=== PATIENT | female | born 1955 | race Caucasian/White ===

== ENCOUNTER 2021-02-11 08:59 | Outpatient (REF) | payer MEDICARE, MEDICAID, SELFPAY ==
[2021-02-11 10:10] LABS: Alanine Aminotransferase 11 U/L (0-31); Albumin Level 4.3 g/dL (3.5-5.0); Alkaline Phosphatase 71 U/L (39-117); Anion Gap 13 (12-20); Aspartate Amino Transferase 18 U/L (5-31); Bilirubin Total 0.7 mg/dL (0.0-1.0); Blood Urea Nitrogen 15 mg/dL (9-16); Calcium 9.1 mg/dL (8.4-10.2); Carbon Dioxide 28 mmol/L (22-29); Chloride 105 mmol/L (96-108); Cholesterol 221 mg/dL; Estimated Glomerular Filt Rate > 60; Glucose Fasting 91 mg/dL (60-99); HDL Cholesterol 71 mg/dL; LDL Cholesterol Calculated 133 mg/dl; Potassium 4.6 mmol/L (3.3-5.1); Sodium 141 mmol/L (135-145); Total Protein 7.1 g/dL (6.5-8.0); Triglycerides 86 mg/dL
== END 2021-02-11 09:00 | disposition home or self-care (01) ==
LOC: HO.LAB 08:59
PROVIDERS: PCP Internal Medicine; Visit Provider Internal Medicine
DX: E78.5 Hyperlipidemia, unspecified (principal)
CPT/HCPCS: 36415; 80053; 80061

== ENCOUNTER 2021-02-12 14:55 | Outpatient (REF) | payer MEDICARE, MEDICAID, SELFPAY | END 2021-02-12 14:56 | disposition home or self-care (01) | LOC: HO.MAMMO 14:55 | PROVIDERS: PCP Internal Medicine; Visit Provider Internal Medicine | DX: Z13.89 Encounter for screening for other disorder (principal) ==

== ENCOUNTER 2021-02-13 10:59 | Outpatient (REF) | payer MEDICARE, MEDICAID, SELFPAY ==
--- NOTE | ~2021-02-13 | MM_ITS ---
EXAMINATION: BONE DENSITOMETRY CLINICAL INDICATION: Asymptomatic menopausal state. COMPARISON: This is the patient's baseline examination. TECHNIQUE: Using a [employer] DXA System (software version: 13.1) manufactured by [employer], dual-energy x-ray absorptiometry was performed of the lumbar spine and left hip. The images are of good technical quality. Summary results are attached. FINDINGS: AP SPINE L1-L4: BMD 0.890 g/cm2, Z-score -0.2, T-score -2.4, osteopenia. LEFT FEMUR, NECK: BMD 0.597 g/cm2, Z-score -1.3, T-score -3.2, osteoporosis. LEFT FEMUR, TOTAL: BMD 0.625 g/cm2, Z-score -1.3, T-score -3.0, osteoporosis. IDENTIFIED RISK FACTORS: Low calcium intake. Menopause. HISTORY OF FRACTURE: None listed. MEDICATIONS: None listed. MM/XR DEXA axial skeleton IMPRESSION: 1. DIAGNOSIS: Osteoporosis based on the lowest T-score value of -3.2 in the femoral neck applying World Health Organization criteria. 2. 10-YEAR FRACTURE RISK PREDICTION, FRAX: Major osteoporotic fracture (clinical spine, forearm, hip or shoulder) 9.8%. Hip fracture 3.3%. 3. Treatment Recommendations: NOF guidelines recommend consideration for treatment in postmenopausal women and men age 50 and older presenting with the following: -A hip or vertebral (clinical or morphometric) fracture. -T-score less than or equal to -2.5 at the femoral neck or spine after appropriate evaluation to exclude secondary causes. -Low bone mass at the hip or spine and a 10-year fracture probability by FRAX of greater than or equal to 3% for hip fracture or greater than or equal to 20% for major osteoporotic fracture based on the [place] adapted WHO algorithm. 4. Other Recommendations: All treatment decisions require clinical judgment and consideration of individual patient factors, including patient preferences, comorbidities, previous drug use, risk factors not captured in the FRAX model (e.g. frailty, falls, vitamin D deficiency, increased bone turnover, interval significant decline in bone density) and possible under or overestimation of fracture risk by FRAX. Additional medical evaluation for secondary cause of low bone mineral density may be appropriate. FUTURE SCAN RECOMMENDATION: People with diagnosed cases of osteoporosis or at high risk for fracture should have regular bone mineral density tests. For patients eligible for Medicare, routine testing is allowed once every 2 years. The testing frequency can be increased to one year for patients who have rapidly progressing disease, those who are receiving or discontinuing medical therapy to restore bone mass, or have additional risk factors.
== END 2021-02-13 11:00 | disposition home or self-care (01) ==
LOC: HO.MAMMO 10:59
PROVIDERS: PCP Internal Medicine; Visit Provider Internal Medicine
DX: Z13.820 Encounter for screening for osteoporosis (principal); E58 Dietary calcium deficiency; Z78.0 Asymptomatic menopausal state
CPT/HCPCS: 77080

== ENCOUNTER 2021-02-25 14:03 | Outpatient (REF) | payer MEDICARE, MEDICAID, SELFPAY ==
[2021-02-25 15:29] LABS: Anion Gap 12 (12-20); Blood Urea Nitrogen 19 mg/dL (9-16); Calcium 9.4 mg/dL (8.4-10.2); Carbon Dioxide 30 mmol/L (22-29); Chloride 102 mmol/L (96-108); Estimated Glomerular Filt Rate > 60; Glucose Random 102 mg/dL (60-115); Potassium 4.1 mmol/L (3.3-5.1); Sodium 140 mmol/L (135-145)
[2021-02-25 15:54] LABS: Vitamin B12 205 pg/mL (200-900)
[2021-02-25 16:15] LABS: T4 Thyroxine 5.9 ug/dL (4.5-12.0)
== END 2021-02-25 14:04 | disposition home or self-care (01) ==
LOC: HO.LAB 14:03
PROVIDERS: PCP Internal Medicine; Visit Provider Psychiatry & Neurology Neurology
DX: G31.84 Mild cognitive impairment of uncertain or unknown etiology (principal)
CPT/HCPCS: 36415; 80048; 82607; 82746; 84436; 84443

== ENCOUNTER 2021-03-04 13:18 | Outpatient (REF) | payer MEDICARE, MEDICAID, SELFPAY ==
--- NOTE | ~2021-03-04 | CT_ITS ---
EXAMINATION: CT HEAD WITHOUT CONTRAST CLINICAL INFORMATION: Mild cognitive impairment. COMPARISON: None TECHNIQUE: Contiguous axial imaging was performed from the skull base to vertex without intravenous administration of contrast. This CT examination was performed using dose optimization techniques as appropriate, variously including the following: *Automated exposure control *Adjustment of mA and/or kV according to patient size (this includes techniques or standardized protocols for targeted exams where dose is matched to indication/reason for exam; i.e. extremities or head) *Use of iterative reconstruction technique DLP: 681 mGy-cm FINDINGS: There is no evidence of acute intracranial hemorrhage or territorial infarction. No abnormal mass effect or midline shift is seen. Manzo to white matter differentiation is well preserved. No extra-axial fluid collections are identified. The ventricles are normal in size. There is no abnormal attenuation within the brain parenchyma. The osseous structures and soft tissues are normal. The mastoid air cells and visualized portions of the paranasal sinuses are well aerated. CT/CT head/brain wo con IMPRESSION: No acute intracranial hemorrhage or mass effect.
== END 2021-03-04 13:19 | disposition home or self-care (01) ==
LOC: HO.CT 13:18
PROVIDERS: PCP Internal Medicine; Visit Provider Psychiatry & Neurology Neurology
DX: G31.84 Mild cognitive impairment of uncertain or unknown etiology (principal)
CPT/HCPCS: 70450

== ENCOUNTER 2021-07-23 12:08 | Outpatient (REF) | payer MEDICARE, MEDICAID, SELFPAY ==
--- NOTE | ~2021-07-23 | MM_ITS ---
EXAMINATION: MM DIAGNOSTIC DIGITAL BREAST TOMOSYNTHESIS, BILATERAL CLINICAL INFORMATION: Due for yearly. Also follow-up probable benign parenchymal asymmetry central left breast initially noted at new baseline. The lifetime risk of breast cancer based on the Tyrer-Cuzick Model is 12%. COMPARISON: Mammography: 06/11/2020, 08/21/2019, 08/16/2019 (new baseline, BI-RADS 0), targeted left breast ultrasound 08/21/2019. TECHNIQUE: Digital breast tomosynthesis is performed in both the craniocaudal and mediolateral oblique views along with computer-aided detection (CAD). Synthesized 2D images are generated from the tomosynthesis. Additional magnification right CC and magnification right ML views are obtained. FINDINGS: The breasts are heterogeneously dense, which may obscure small masses (ACR BI-RADS breast composition Category c). The distribution of parenchymal tissue is similar to prior studies including the area for follow-up central left breast on CC view. There is no developing density or interval mass or architectural abnormality. The left breast parenchymal asymmetry is now considered to be benign. The skin contours are smooth. There are no abnormal calcifications on the left. The right breast has new grouped calcifications posterior upper outer quadrant. The additional magnification views show predominantly heterogeneous coarse calcifications along with some fine faint calcifications, overall at least 10 in number. These represent change from prior imaging. Stereotactic sampling is recommended. Results are discussed with the patient at time of visit, using an machine driller. MM/MM tomosynthesis diagnostic BI IMPRESSION: 1. Right: New grouped heterogeneous coarse and some fine lower attenuation calcifications posterior upper outer quadrant. 2. Left: No mammographic evidence of malignancy. The parenchymal asymmetry central left breast is stable since new baseline 2018 and now considered to be benign. ASSESSMENT: BI-RADS 4: Suspicious RECOMMENDATION: Stereotactic biopsy right breast calcifications upper outer quadrant. This patient's information was entered into a reminder system with a target due date for their next mammogram.
== END 2021-07-23 12:09 | disposition home or self-care (01) ==
LOC: HO.MAMMO 12:08
PROVIDERS: Visit Provider Internal Medicine
DX: N64.89 Other specified disorders of breast (principal)
CPT/HCPCS: 77062; 77066

== ENCOUNTER 2021-07-29 08:57 | Outpatient (REF) | payer MEDICARE, MEDICAID, SELFPAY ==
--- NOTE | ~2021-07-29 | MM_ITS ---
EXAMINATION: STEREOTACTIC TOMOSYNTHESIS-GUIDED VACUUM-ASSISTED BREAST BIOPSY, RIGHT SPECIMEN RADIOGRAPH, RIGHT POST PROCEDURE DIGITAL MAMMOGRAM, RIGHT CLINICAL INFORMATION: Grouped heterogeneous calcifications posterior upper outer right breast for stereotactic sampling. COMPARISON: Mammography 07/23/2021, 06/11/2020. TECHNIQUE/PROCEDURE: Informed consent was obtained from the patient after discussion of the benefits, risks, and alternatives to biopsy today. Patient appeared to understand. Gave opportunity for questions. Patient signed consent form. BIOPSY TABLE: [employer] Affirm Prone Biopsy System. LESION: Grouped heterogeneous calcifications posterior upper outer right breast. LOCAL ANESTHESIA: 8 mL 1% lidocaine; 10 mL 1% lidocaine with epinephrine. DERMATOTOMY: Single skin malu dermatotomy performed. NEEDLE: [employer] Eviva 9-gauge vacuum assisted core biopsy device. APPROACH: lateral medial. TARGETING: Digital breast tomosynthesis used for targeting. CORES: 7. CLIP: [employer] SecurMark T-shaped marker. SPECIMEN RADIOGRAPH: Specimen radiograph is taken in separate room using digital mammography. The index calcifications are in the excised cores. There are at least 12 calcifications in the cores. POST PROCEDURE UNILATERAL DIGITAL MAMMOGRAM: The post biopsy mammogram is performed in separate room using separate digital mammography equipment from the biopsy procedure. CC and ML views are obtained. There are scattered areas of fibroglandular density (breast composition category: b). The clip marker is deployed. There is mild accordion effect with marker residing approximately 1 cm from the remaining calcifications. The patient tolerated the procedure well. No immediate complications. Home instructions reviewed with the patient. Final pathology results are pending. MM/MM stereotactic biopsy RT IMPRESSION: 1. Digital tomosynthesis-guided core biopsy right breast with clip placement. 2. Specimen radiograph taken and post procedure mammogram. There is satisfactory positioning of the biopsy clip. 3. Final pathology results pending. An addendum report will be issued.
== END 2021-07-29 08:58 | disposition home or self-care (01) ==
LOC: HO.MAMMO 08:57
PROVIDERS: Visit Provider Surgery
DX: D05.11 Intraductal carcinoma in situ of right breast (principal)
CPT/HCPCS: 19081; 88305; 88341; 88342; 88360; 99202; A4648

== ENCOUNTER → 2021-08-01 09:16 | Outpatient (BNVA) | payer MEDICARE, MEDICAID, SELFPAY | PROVIDERS: PCP Internal Medicine; Referring Provider Internal Medicine; Visit Provider Surgery | DX: D05.11 Intraductal carcinoma in situ of right breast (principal) | CPT/HCPCS: 99212 ==

== ENCOUNTER 2021-08-04 08:14 | Outpatient (REF) | payer MEDICARE, MEDICAID, SELFPAY ==
[2021-08-04 09:44] LABS: Alanine Aminotransferase 10 U/L (0-31); Albumin Level 4.4 g/dL (3.5-5.0); Alkaline Phosphatase 90 U/L (39-117); Anion Gap 12 (12-20); Aspartate Amino Transferase 15 U/L (5-31); Bilirubin Total 0.6 mg/dL (0.0-1.0); Blood Urea Nitrogen 12 mg/dL (9-16); Calcium 9.9 mg/dL (8.4-10.2); Carbon Dioxide 28 mmol/L (22-29); Chloride 104 mmol/L (96-108); Cholesterol 221 mg/dL; Estimated Glomerular Filt Rate > 60; Glucose Fasting 86 mg/dL (60-99); HDL Cholesterol 64 mg/dL; LDL Cholesterol Calculated 137 mg/dl; Potassium 4.9 mmol/L (3.3-5.1); Sodium 139 mmol/L (135-145); Total Protein 7.3 g/dL (6.5-8.0); Triglycerides 101 mg/dL
== END 2021-08-04 08:15 | disposition home or self-care (01) ==
LOC: HO.LAB 08:14
PROVIDERS: PCP Internal Medicine; Visit Provider Internal Medicine
DX: E78.5 Hyperlipidemia, unspecified (principal)
CPT/HCPCS: 36415; 80053; 80061

== ENCOUNTER 2021-08-20 | Outpatient (REF) | payer MEDICARE, MEDICAID, SELFPAY | END 2021-08-20 00:01 | disposition home or self-care (01) | LOC: HO.MAMMO | PROVIDERS: Visit Provider Surgery | DX: Z53.8 Procedure and treatment not carried out for other reasons (principal); D05.11 Intraductal carcinoma in situ of right breast; M81.0 Age-related osteoporosis without current pathological fracture; F41.8 Other specified anxiety disorders; F33.0 Major depressive disorder, recurrent, mild; Z88.0 Allergy status to penicillin ==

== ENCOUNTER 2021-08-20 06:50 | Day surgery (SDC) | payer MEDICARE, MEDICAID, SELFPAY ==
[2021-08-14 12:18] VITALS: BMI 19.7
--- NOTE | 2021-08-19 10:27 | HO.ANESPROP2 ---
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) Osteoporosis (Acute) Mild recurrent major depression (Acute) Depression (Acute) Cognitive impairment (Acute) Dyslipidemia (Acute) Chronic headaches (Acute) Past Medical History Medical History (Updated 08/14/21 @ 12:08 by Kiera Peterson, RN) Anxiety Chronic headaches Cognitive impairment Depression Dyslipidemia Mild recurrent major depression Osteoporosis Family History Family History Father Cirrhosis Mother Chronic mental illness Diabetes Hypertension Family/Other Chronic mental illness Sister Breast cancer Sister Lung cancer Cancer of kidney Family/Other Breast cancer Surgical History Surgical History History of surgery Social History Social History Housing: Apartment Alcohol intake: never Patient Tobacco Use Status: Never used Tobacco e-Cigarette/Vaping Use: Never Used Second Hand Smoke Exposure: No Use of substances other than those prescribed or required for medical reasons: No Are you DNR?: No Advance Directives: No Advance Directives Information Provided: Yes service: No Current occupational status: disabled Meds Allergies Allergy/AdvReac Type Severity Reaction Status Date / Time penicillin V Allergy Intermediate Itching Verified 08/14/21 12:08 Home Medications Medication Instructions Recorded Confirmed Last Taken Type ibuprofen 200 mg tablet (Advil) 200 mg PO Q6H PRN 02/06/21 08/14/21 Unknown History escitalopram oxalate 10 mg tablet 10 mg PO DAILY 07/08/21 08/14/21 Unknown History trazodone 100 mg tablet 100 mg PO BEDTIME 08/14/21 08/14/21 Unknown History Exam Exam Date and Time: August 19, 2021 1027 Height,Weight and Vital Signs: Height 5 ft Weight 45.813 kg Pertinent Lab Results Pertinent Lab Results: Laboratory Tests 06/13/20 08/04/21 07:20 08:35 WBC 5.3 Hgb 12.6 Hct 39.1 Plt Count 278 Sodium 139 Potassium 4.9 Chloride 104 Carbon Dioxide 28 BUN 12 Creatinine 0.77 Assessment and Plan Assessment Anesthesia Assessment: Chart Reviewed Documented by User: Sea Bertrand MD 08/20/21 07:49 PMFSH Past Medical History Medical History (Updated 08/14/21 @ 12:08 by Kiera Peterson RN) Anxiety Chronic headaches Cognitive impairment Depression Dyslipidemia Mild recurrent major depression Osteoporosis Family History Family History Father Cirrhosis Mother Chronic mental illness Diabetes Hypertension Family/Other Chronic mental illness Sister Breast cancer Sister Lung cancer Cancer of kidney Family/Other Breast cancer Surgical History Surgical History History of surgery Social History Social History Housing: Apartment Alcohol intake: never Patient Tobacco Use Status: Never used Tobacco e-Cigarette/Vaping Use: Never Used Second Hand Smoke Exposure: No Use of substances other than those prescribed or required for medical reasons: No Are you DNR?: No Advance Directives: No Advance Directives Information Provided: Yes service: No Current occupational status: disabled Meds Allergies Allergy/AdvReac Type Severity Reaction Status Date / Time penicillin V Allergy Intermediate Itching Verified 08/14/21 12:08 Home Medications Medication Instructions Recorded Confirmed Last Taken Type ibuprofen 200 mg tablet (Advil) 200 mg PO Q6H PRN 02/06/21 08/14/21 Unknown History escitalopram oxalate 10 mg tablet 10 mg PO DAILY 07/08/21 08/14/21 Unknown History trazodone 100 mg tablet 100 mg PO BEDTIME 08/14/21 08/14/21 Unknown History Exam Airway Mallampati Class: II TM Dist: >3cm Neck ROM: Full
--- NOTE | ~2021-08-20 | MM_ITS ---
EXAMINATION: MM MAMMOGRAM GUIDED NEEDLE LOCALIZATION BREAST, RIGHT MM NEEDLE LOCALIZATION SPECIMEN FROM THE RIGHT BREAST CLINICAL INFORMATION: Recent diagnosis DCIS upper outer right breast. COMPARISON: Mammography 07/29/2021, 07/23/2021, 06/11/2020, 08/16/2019 TECHNIQUE NEEDLE LOC: Proper informed consent is obtained from the patient after discussion of the procedure, potential risks and complications, and alternatives including declining the procedure today. Patient was given an opportunity for questions. The patient appeared to understand. The patient consented to the procedure and signed the consent form. Hospital provided field sales agent assisted for the consent and throughout the procedure. GUIDANCE: Digital mammography. APPROACH: Lateral Medial. TARGET: Biopsy clip marker upper outer right breast. ANESTHESIA: lidocaine 1%: 5 mL. LOCALIZATION MARKER: [employer]. 5 cm length. The skin is prepped and local anesthesia administered. The needle is positioned and position assessed with mammography. The wire is hooked into position. [place] needle protector placed. The patient tolerated the procedure well and had no immediate complication. Procedure results called to emergency medical service manager (Estefania) for Dr. Rojas. TECHNIQUE SPECIMEN RADIOGRAPH: Imaging of the excised specimen is performed using digital mammography in 1 view. FINDINGS SPECIMEN RADIOGRAPH: The specimen shows the needle and hookwire are delivered intact. The biopsy clip marker is seen adjacent to the distal needle. There are also grouped calcifications adjacent to the wire. Results were called to Dr. Tate Rojas in the operating room at the time of imaging. MM/MM needle loc RT IMPRESSION: 1. Status post right breast needle localization with wire hooked into position. 2. Post operative specimen radiograph obtained.
[2021-08-20 07:40] VITALS: BMI 19.5
[2021-08-20 07:45] VITALS: BP 144/77; PULSE 87; RESP 20; TEMP 36.5; O2SAT 100
[2021-08-20] MEDS: Lactated Ringers 1,000 ML 100 ML IVCONT (08:01)
--- NOTE | 2021-08-20 09:09 | MHC.SHP ---
Pre-Procedural Eval Section A Date of Service: 08/20/21 The patient is an INPATIENT: No Changes since office visit: Yes Patient answered all questions; No Cold of Flu in the past 2 weeks, No New Medical Problems and No Changes in Medication The History & Physical has been completed within 30 days and I have reviewed it.: Yes Section B Chief Complaint: Ductal carcinoma in situ of right breast Allergies: Allergies Allergy/AdvReac Type Severity Reaction Status Date / Time penicillin V Allergy Intermediate Itching Verified 08/14/21 12:08 Plan Diagnosis/Plan: Unchanged I have reviewed the history and physical and performed a pertinent physical examination on my patient. No changes have occurred unless specified.
[2021-08-20] MEDS: vancomycin HCL 1,000 MG in 0.9 % Sodium Chloride 250 ML 270 MG IV (09:20)
[2021-08-20 10:43] VITALS: BP 116/66; PULSE 75; RESP 17; TEMP 36.4; O2SAT 97
[2021-08-20 10:48] VITALS: BP 123/69; PULSE 81; RESP 16; O2SAT 98
[2021-08-20 10:54] VITALS: BP 121/67; PULSE 82; RESP 16; O2SAT 99
[2021-08-20 11:00] VITALS: BP 130/66; PULSE 83; RESP 16; O2SAT 96
[2021-08-20 11:15] VITALS: PULSE 3; RESP 16; TEMP 36.4; O2SAT 97
--- NOTE | 2021-08-20 11:17 | P.OP_ITS ---
Operative Note Operative Note Date of Service: 08/20/21 Narrative: Preoperative diagnosis: Ductal carcinoma in situ right breast Postoperative diagnosis: Same Procedure: Right breast lumpectomy with needle localization Surgeon: Tate Rojas MD Tool Grinder Operator Surface: Julia Gilmore PA-C Anesthesia: General LMA Indications for procedure: 65-year-old female patient presenting with a cluster of microcalcifications in the right breast at the upper outer quadrant. Subsequent stereotactic guided core biopsy revealed ductal carcinoma in situ. She presents today for lumpectomy with needle localization. Operative findings: Specimen x-ray confirmed marking clip and some of residual calcifications within the specimen. Gross inspection revealed biopsy cavity within the specimen. Specimen: Right breast lumpectomy Estimated blood loss: 5 mL Procedure details: Patient was brought to the OR and placed in a supine position. After administering general anesthesia, the right breast was prepped with ChloraPrep draped in a sterile fashion. A surgical time-out was called and the consent confirmed. Preoperative antibiotics were administered and the dye boots were in place. Local anesthesia consisting of 0.25% Sensorcaine with epinephrine was then infiltrated around the localizing needle. A radial incision was made around the entrance of the needle and carried out through subcutaneous tissue. Superior and inferior skin flaps were then created. A core of tissue surrounding the needle was then dissected using a combination of sharp and electrocautery dissection. Every attempt was made to dissect wide of the localizing wire to assure complete removal of the specimen. The specimen was then marked with a long suture on the lateral margin, short suture on the superior margin and a loop suture in the deep margin. Specimen was sent to Radiology department for specimen x-ray followed by gross pathology. After assuring complete removal of the specimen, the wounds were checked for hemostasis. Wounds were irrigated with saline and suctioned dry. Deep breast tissue was then reapproximated using interrupted 3-0 Polysorb sutures. Dermis was reapproximated using interrupted 3-0 Polysorb sutures. Skin was then closed using a running subcuticular 4-0 Polysorb suture. Steri-Strips 2 x 2 gauze and Tegaderm were then applied. The patient tolerated the procedure well. Sponge, instrument, and needle counts reported as correct. The patient was transferred to PACU in stable condition.
== END 2021-08-20 12:00 | disposition home or self-care (01) ==
PROVIDERS: PCP Internal Medicine; Visit Provider Surgery
PROC: (CPT 19301; principal; 2021-08-20 09:30)
DX: D05.11 Intraductal carcinoma in situ of right breast (principal); Z17.0 Estrogen receptor positive status [ER+]; R92.0 Mammographic microcalcification found on diagnostic imaging of breast; Z80.3 Family history of malignant neoplasm of breast; F33.0 Major depressive disorder, recurrent, mild; F41.9 Anxiety disorder, unspecified; M81.0 Age-related osteoporosis without current pathological fracture; G31.84 Mild cognitive impairment of uncertain or unknown etiology; R51.9 Headache, unspecified; Z79.899 Other long term (current) drug therapy; Z79.1 Long term (current) use of non-steroidal anti-inflammatories (NSAID); Z88.0 Allergy status to penicillin
CPT/HCPCS: 19301; 19281; 88307; 88329; A4648; J1100; J2370; J2405; J3010; J3370

== ENCOUNTER → 2021-08-26 09:57 | Outpatient (BNVA) | payer MEDICARE, MEDICAID, SELFPAY | PROVIDERS: PCP Internal Medicine; Referring Provider Internal Medicine; Visit Provider Surgery | DX: Z48.3 Aftercare following surgery for neoplasm (principal); D05.11 Intraductal carcinoma in situ of right breast | CPT/HCPCS: 99212 ==

== ENCOUNTER → 2022-06-16 08:45 | Outpatient (REF) | payer MEDICARE, MEDICAID, OTHER, SELFPAY ==
--- NOTE | 2022-06-16 08:52 | ECG_ITS ---
Test Reason : arrhythmia Blood Pressure : / mmHG Vent. Rate : 068 BPM Atrial Rate : 068 BPM P-R Int : 140 ms QRS Dur : 074 ms QT Int : 368 ms P-R-T Axes : 046 011 026 degrees QTc Int : 391 ms Normal sinus rhythm Normal ECG No previous ECGs available Referred By: Viktoria Lombardi Electronically Signed By:MADHU JEROME MD
== END ==
LOC: HO.CARD 08:45
PROVIDERS: PCP Internal Medicine; Visit Provider Internal Medicine
DX: I49.9 Cardiac arrhythmia, unspecified (principal)
CPT/HCPCS: 93005

== ENCOUNTER → 2022-06-17 12:36 | Outpatient (BNV) | payer MEDICARE, MEDICAID, SELFPAY | PROVIDERS: PCP Internal Medicine; Referring Provider Surgery; Visit Provider Internal Medicine | DX: D05.11 Intraductal carcinoma in situ of right breast (principal); Z79.810 Long term (current) use of selective estrogen receptor modulators (SERMs); M81.0 Age-related osteoporosis without current pathological fracture | CPT/HCPCS: 99205; 99213; 99214; G2211 ==

== ENCOUNTER 2022-06-19 08:13 | Outpatient (REF) | payer MEDICARE, MEDICAID, SELFPAY ==
[2022-06-19 08:32] LABS: MANUAL DIFF FLAG NO
[2022-06-19 09:14] LABS: Basophils Percent Auto 0.6 % (0-2); Eosinophils Absolute Auto 0.1 X10*3/uL (0.0-0.4); Eosinophils Percent Auto 1.8 % (0-4); Hematocrit 39.1 % (37.0-47.0); Hemoglobin 12.8 g/dl (12.0-16.0); Imm Gran Abs Auto 0.01 X10*3/uL (0.00-0.03); Imm Gran Pct Auto 0.2 % (0.0-0.4); Lymphocytes Absolute Auto 1.5 X10*3/uL (1.2-4.9); Mean Corpuscular HGB Conc 32.7 g/dl (31.0-35.0); Mean Corpuscular Hemoglobin 29.3 pg (27.0-33.0); Mean Corpuscular Volume 89.5 fL (80.0-98.0); Mean Platelet Volume 9.8 fL (9.4-12.3); Monocytes Absolute Auto 0.6 X10*3/uL (0.1-1.2); Monocytes Percent Auto 12.7 % (2-11); Neutrophils Absolute Auto 2.6 x10*3/uL (2.0-8.3); Neutrophils Percent Auto 53.7 % (45-73); Platelet Count 283 X10*3/uL (160-400); Red Blood Count 4.37 X10*6/uL (4.20-5.50); Red Cell Distribution Width 12.2 % (11.0-16.0); White Blood Count 4.9 X10*3/uL (4.8-10.8)
[2022-06-19 10:10] LABS: Alanine Aminotransferase 13 U/L (0-31); Albumin Level 4.4 g/dL (3.5-5.0); Alkaline Phosphatase 82 U/L (39-117); Anion Gap 13 (12-20); Aspartate Amino Transferase 18 U/L (5-31); Bilirubin Total 0.6 mg/dL (0.0-1.0); Blood Urea Nitrogen 18 mg/dL (9-16); Calcium 9.5 mg/dL (8.4-10.2); Carbon Dioxide 29 mmol/L (22-29); Chloride 104 mmol/L (96-108); Cholesterol 241 mg/dL; Estimated Glomerular Filt Rate > 60; Glucose Fasting 84 mg/dL (60-99); HDL Cholesterol 70 mg/dL; LDL Cholesterol Calculated 158 mg/dl; Potassium 4.5 mmol/L (3.3-5.1); Sodium 141 mmol/L (135-145); Total Protein 7.4 g/dL (6.5-8.0); Triglycerides 67 mg/dL
[2022-06-19 10:20] LABS: Thyroid Stimulating Hormone 2.25 uIU/mL (0.32-4.0); Vitamin D 25-OH Total 37.4 ng/mL (>30)
[2022-06-19 10:36] LABS: Folate 18.1 ng/mL (> or = 4.0); Vitamin B12 247 pg/mL (200-900)
[2022-06-19 10:47] LABS: Syphilis Screen Nonreactive (Nonreactive)
== END 2022-06-19 08:14 | disposition home or self-care (01) ==
LOC: HO.LAB 08:13
PROVIDERS: PCP Internal Medicine; Visit Provider Internal Medicine
DX: E78.5 Hyperlipidemia, unspecified (principal); M81.0 Age-related osteoporosis without current pathological fracture; R41.89 Other symptoms and signs involving cognitive functions and awareness
CPT/HCPCS: 36415; 80053; 80061; 82306; 82607; 82746; 84443; 85025; 86780

== ENCOUNTER 2022-06-25 14:19 | Outpatient (REF) | payer MEDICARE, MEDICAID, SELFPAY ==
--- NOTE | ~2022-06-25 | MM_ITS ---
EXAMINATION: MM DIAGNOSTIC DIGITAL BREAST TOMOSYNTHESIS, BILATERAL CLINICAL INFORMATION: Right lumpectomy for DCIS, 08/20/2021. Due for yearly. COMPARISON: Mammography: 08/20/2021, 07/29/2021, 07/23/2021, 09/11/2020, 08/21/2019, 08/16/2019 (new baseline). TECHNIQUE: Digital breast tomosynthesis is performed in both the craniocaudal and mediolateral oblique views along with computer-aided detection (CAD). Synthesized 2D images are generated from the tomosynthesis. Additional exaggerated right CC, magnification exaggerated right CC and magnification right ML views are obtained. FINDINGS: There are scattered areas of fibroglandular density (ACR BI-RADS breast composition Category b). There are post therapy changes right breast when compared with prior exam. Mild reduced breast size and mild scarring posterior upper outer right breast is present. The breasts are otherwise similar to prior studies. There is no interval mass or developing density or abnormal calcifications. The axilla are unremarkable. Results are provided to the patient at time of visit by the technologist. MM/MM tomosynthesis diagnostic BI IMPRESSION: -No mammographic evidence of malignancy. -Post therapy changes right breast. ASSESSMENT: BI-RADS 2: Benign RECOMMENDATION: Annual bilateral mammography. This patient's information was entered into a reminder system with a target due date for their next mammogram.
== END 2022-06-25 14:20 | disposition home or self-care (01) ==
LOC: HO.MAMMO 14:19
PROVIDERS: PCP Internal Medicine; Visit Provider Internal Medicine
DX: D05.11 Intraductal carcinoma in situ of right breast (principal)
CPT/HCPCS: 77062; 77066

== ENCOUNTER → 2023-07-16 13:00 | Outpatient (BNV) | payer MEDICARE, MEDICAID, SELFPAY | PROVIDERS: PCP Internal Medicine; Visit Provider Radiology Diagnostic Radiology | DX: D05.11 Intraductal carcinoma in situ of right breast (principal) | CPT/HCPCS: 77062; 77066; G0279 ==

== ENCOUNTER 2023-07-16 13:09 | Outpatient (REF) | payer MEDICARE, MEDICAID, SELFPAY ==
--- NOTE | ~2023-07-16 | MM_ITS ---
EXAMINATION: MM DIAGNOSTIC DIGITAL BREAST TOMOSYNTHESIS, BILATERAL CLINICAL INFORMATION: Year 2 status post lumpectomy for right breast DCIS upper outer quadrant. Bilateral screening. COMPARISON: Mammography: 06/25/2022, 07/23/2021, 06/03/2020, and dating back to 2019. TECHNIQUE: Digital breast tomosynthesis is performed in both the craniocaudal and mediolateral oblique views along with computer-aided detection (CAD). Synthesized 2D images are generated from the tomosynthesis. In addition to standard views, spot magnification right CC and ML views were obtained. Also, full-field left 3-D exaggerated CC projection was performed. FINDINGS: There are scattered areas of fibroglandular density (ACR BI-RADS breast composition Category b). There are stable postoperative changes in the upper outer right breast related to prior intervention/lumpectomy. There are no recurrent calcifications identified. There are no developing masses, regions of developing architectural distortion, or suspicious grouped calcifications in either breast. A rounded masslike asymmetry in the medial left breast on the cc view and has no MLO correlate, and has been previously characterized as a prominent island of glandular tissue. It has not changed in size and appearance. It dissipates somewhat on the exaggerated CC projection. MM/MM tomosynthesis diagnostic BI IMPRESSION: There are no significant changes from prior study. No findings suspicious for malignancy. Stable benign post operative changes right breast upper outer quadrant. No recurrent calcifications identified. Recommend patient continue routine annual screening for both breasts. ASSESSMENT: BI-RADS BI-RADS 2 - Benign Findings RECOMMENDATION: 1 year F/U Results were provided to the patient at time of visit by the technologist. This patient's information was entered into a reminder system with a target due date for their next mammogram.
== END 2023-07-16 13:10 | disposition home or self-care (01) ==
LOC: HO.MAMMO 13:09
PROVIDERS: PCP Internal Medicine; Visit Provider Internal Medicine
DX: Z85.3 Personal history of malignant neoplasm of breast (principal)
CPT/HCPCS: 77062; 77066

== ENCOUNTER 2024-02-16 13:37 | Outpatient (AMB) | payer MEDICARE, MEDICAID, SELFPAY ==
[2024-02-16 13:53] VITALS: BP 128/82; BMI 19.5
--- NOTE | 2024-02-16 13:53 | A.OFFVIS_ITS ---
Intake Vital Signs 02/16/24 13:53 Height 5 ft 3 in Weight 110 lb BMI 19.5 BP 128/82 Blood Pressure Location Lt brachial Position Sitting Intake Visit Reasons: SWV G0439 Intake Note: Patient here for a subsequent annual wellness visit Rehab Liaison Required: No Accompanied by: sister Allergies penicillin V Allergy (Intermediate, Verified 02/16/24 14:14) Itching Medication List - Last Reconciled 02/16/24 by Viktoria Lombardi MD alendronate 70 mg PO QWEEK 30 days cyanocobalamin (vitamin B-12) (Vitamin B-12) 1,000 mcg PO DAILY escitalopram oxalate 10 mg PO DAILY ibuprofen (Advil) 200 mg PO Q6H PRN tamoxifen 20 mg (2 x 10 mg) PO DAILY trazodone 100 mg PO BEDTIME HPI HPI Comments History of Present Illness Details This is a 68-year-old female with mild major depression that comes accompanied by sister for her physical exam. Depression stable with escitalopram. Last mammogram was July 2023 and was normal. Had Cologuard 2021 was negative. Bone densitometry was done 2020 showing osteoporosis and this will be repeated. Ppp handed to patient. Completed healthcare proxy. [facility] Medical History Anxiety Osteoporosis Mild recurrent major depression Depression Cognitive impairment Dyslipidemia Chronic headaches Surgical History S/P lumpectomy, right breast History of surgery Family History Father Cirrhosis Mother Diabetes Hypertension Family/Other Chronic mental illness Sister Breast cancer Sister Lung cancer Cancer of kidney Family/Other Breast cancer Substance use disorder Social History Household Members: Family Housing: Apartment Alcohol intake: never Patient Tobacco Use Status: Never used Tobacco e-Cigarette/Vaping Use: Never Used Second Hand Smoke Exposure: No service: No Current occupational status: disabled Cognitive needs: No Hearing needs: No Vision needs: No Female Reproductive History Menstrual Age of Menarche: 11 Questionnaire Medicare Wellness Checkup What [age] What gender do you identify with?: female During the past 4 weeks, how much have you been bothered by emotional problems such as feeling anxious, depressed, irritable, sad or downhearted, and blue?: quite a bit During the past 4 weeks, has your physical & emotional health limited your social activities with family, friends, neighbors, or groups?: not at all During the past 4 weeks, how much bodily pain have you generally had?: mild pain During the past 4 weeks, was someone available to help you if you needed & wanted help?: yes, as much as I wanted During the past 4 weeks, what was the hardest physical activity you could do for at least 2 minutes?: heavy Can you get to places out of walking distance without help? (For eg., can you travel alone on buses, taxis or drive your car?): Yes Can you go shopping for groceries or clothes without someone's help?: No Can you prepare your own meals?: No Can you do your housework without help?: Yes Because of any health problems, do you need the help of another person with your personal care needs such as eating, bathing, dressing or getting around the house?: No Can you handle your own money without help?: No During the past 4 weeks, how would you rate your health in general?: good During the past 4 weeks how have things been going for you?: good & bad parts about equal Are you having difficulties driving your car?: not applicable, I don't use a car Do you always fasten your seat belt when you are in a car?: yes, usually During past 4 weeks, have you been bothered by the following: never: Falling or dizzy when standing up, Sexual problems?, Trouble eating well? and Problems using the telephone? and sometimes: Teeth or denture problems? and Tiredness or fatigue? Have you fallen 2 or more times in the past year?: No Are you afraid of falling?: No Are you a smoker?: no During the past 4 weeks, how many drinks of wine, beer, or other alcoholic beverages did you have?: no alcohol at all Do you exercise for about 20 minutes 3 or more times a week?: yes, some of the time Have you been given information to help with the following?: yes: Hazards in your house that might hurt you? and yes: Keeping track of your medications? How often do you have trouble taking medicines the way you have been told to take them?: I always take medicine as prescribed How confident are you that you can control & manage most of your health problems?: somewhat confident What is your race?: or origin or descent Mini Mental State Exam (MMSE) Orientation What is the (year) (season) (date) (day) (month)?: date, day and month Where are we (state) (county) (town or city) (hospital) (floor)?: state, county, town or city, hospital/clinic and floor Registration Name of 3 unrelated objects clearly and slowly, then ask patient to repeat all 3 of them. (1st repeat determines score. Make sure they can repeat all three): object 1, object 2 and object 3 Attention & Calculation (CHOOSE ONE) Spell WORLD backwards (DLROW): 3 letters Recall Ask patient to repeat the 3 items from question #3.: object 1, object 2 and object 3 Language Show patient a wristwatch & ask what it is. Repeat for pencil.: watch and pencil Ask the patient to repeat the phrase 'No ifs, ands, or buts' after you.: correct Ask the patient to 'take a piece of paper with their right hand' 'fold paper in half' 'place paper on floor': take paper in right hand, fold paper in half and place paper on floor Print the sentence 'CLOSE YOUR EYES' on a piece. If patient actually closes eyes then score.: followed written direction Score Score: 24 Activity of Daily Living Bathing - sponge bath, tub bath or shower: receives no assistance (gets in/out by self, if usual bathing means Dressing - getting clothes from closets & drawers, including inner/outer garments & fasteners.: gets clothes & gets completely dressed without help Toileting - going to the 'toilet room' for urine/bowel elimination & cleaning self/arranging clothes: goes to toilet room, cleans self, arranges clothes without help Transfer: moves in & out of bed and chair without help (may use support object) Continence: controls urination/bowel movements completely by self Total Score: 0 Information obtained from: patient Using telephone: dependent Traveling: dependent Shopping: dependent Preparing meals: dependent Housework: dependent Taking medicine: needs assistance Managing money: dependent PHQ-9 Over the last 2 weeks, how often have you been bothered by any of the following problems? 1. Little interest or pleasure in doing things: more than half the days 2. Feeling down, depressed, or hopeless: more than half the days 3. Trouble falling or staying asleep, or sleeping too much: several days 4. Feeling tired or having little energy: several days 5. Poor appetite or overeating: several days 6. Feeling bad about yourself - or that you are a failure or have let yourself or your family down: several days 7. Trouble concentrating on things, such as reading the newspaper or watching television: several days 8. Moving or speaking so slowly that other people could have noticed. Or the opposite - being so fidgety or restless that you have been moving around a lot more than usual: not at all 9. Thoughts that you would be better off or of hurting yourself in some way: not at all Total score: 9 Depression Screening Interpretation: Positive Depression Screening Follow-up: Existing condition Depression Screening Done: Yes 64544 - PHQ-9 Billing: Yes Source: Developed by Drs. Norm Alba, Prerna Bojorquez, Constantin Marley and colleagues, with an educational ivette from [employer]. AUDIT C Alcohol Use Questionnaire (AUDIT-C) 1. How often do you have a drink containing alcohol?: Never Total Score: 0 Score Reviewed/Action Taken: No Thrive Questionnaire Date Thrive assessed: 02/16/24 I am a: Parent/Caregiver What is your living situation today?: I have a steady place to live Within the past 12 months, did the food you bought not last and you didn't have the money to get more?: Never true Within the past 12 months, did you worry whether your food would run out before you got money to buy more?: Never true Do you have trouble paying for medicines?: No Do you have trouble getting transportation to medical appointments?: No Do you have trouble paying your heating and electricity bill?: No Do you have trouble taking care of your child, family member or friend?: No Do you have trouble with day-to-day activities such as bathing, preparing meals, shopping, managing finances, etc.?: No Are you currently unemployed and looking for a job?: No Are you interested in more education?: No Please select the resources that you would like help with: None Currently or been in a relationship where the following occur: no concerns reported THRIVE Score: 0 ANDREW-7 AMB Questionnaire ANDREW-7 Date ANDREW - 7 assessed: 02/16/24 Feeling nervous, anxious, or on edge: 1 = Several days Not being able to stop or control worryin = Not at all Worrying too much about different things: 2 = More than half the days Trouble relaxin = Several days Being so restless that it is hard to sit still: 0 = Not at all Becoming easily annoyed or irritable: 1 = Several days Feeling afraid as if something awful might happen: 0 = Not at all Total ANDREW-7 score (0-4 normal; 5-9 mild; 10-14 moderate; 15-21 severe): 5 Source: Developed by Drs. Norm Alba, Prerna Bojorquez, Constantin Marley and colleagues, with an educational ivette from [employer]. ANDREW-7 Assessment Billing ANDREW-7 Assessment Tool: ANDREW-7 Assessment 66902 Fall Risk Assessment Fall Risk Assessment Fall risk assessment: No Falls in past year Review of Systems ENT Reports Normal hearing present Neuro Reports Normal hearing present and Reports memory loss Psych Reports memory loss Physical Exam Vital Signs: Last Vital Signs BP 128/82 02/16/24 13:53 BMI result Body Mass Index 19.5 Resp Auscultation: clear to auscultation bilaterally Cardio Heart sounds: S1 normal heart sound present and S2 normal heart sound present Neuro Cranial nerves: Yes Normal hearing present Gait exam (Neuro): Normal gait present Romberg Test: Negative Assessment & Plan Assessment & Plan (1) Encounter for Medicare annual wellness exam: Code(s): Z00.00 - Encounter for general adult medical examination without abnormal findings Plan: Repeat in a year. (2) Mild recurrent major depression: Code(s): F33.0 - Major depressive disorder, recurrent, mild Plan: Continue escitalopram. Orders: Orders Vitamin D 25-OH Total Today E55.9 - Vitamin D deficiency, unspecified Vitamin B12 and Folate Today E53.8 - Deficiency of other specified B group vitamins Lipid Panel Today E78.5 - Hyperlipidemia, unspecified XR DEXA axial skeleton Today N95.9 - Unspecified menopausal and perimenopausal disorder Comprehensive [place]. Panel Fast Today E78.5 - Hyperlipidemia, unspecified Quality Reporting (2019) Fall Risk Screening (CMS 139) Fall risk assessment: No Falls in past year Depression/Bipolar (159/160/161/177) PHQ-9: Total score: 9 Coding Level of Care Code Medicare Subsequent (G0439) Diagnoses Encounter for Medicare annual wellness exam Z00.00 Mild recurrent major depression F33.0 CPT Codes Advance Care Planning - Time spent: 1-15 minutes, on File ([id number]) Additional Codes ANDREW-7 Assessment Billing - ANDREW-7 Assessment Tool: ANDREW-7 Assessment [id number] ([id number]) Time Spent (min) 35 Advance Care Planning Advance Care Planning discussion: Exists, not on file Date of discussion: 02/16/24 Who was present: sister, patient and me Forms completed: Health Care Proxy Time spent: 1-15 minutes, on File Actual minutes spent: 3
== END 2024-02-16 14:36 | disposition home or self-care (01) ==
PROVIDERS: PCP Internal Medicine; Visit Provider Internal Medicine
DX: Z00.00 Encounter for general adult medical examination without abnormal findings (principal); F33.0 Major depressive disorder, recurrent, mild
CPT/HCPCS: 1123F; G0439

== ENCOUNTER 2024-03-01 12:38 | Outpatient (REF) | payer MEDICARE, MEDICAID, SELFPAY ==
--- NOTE | ~2024-03-01 | MM_ITS ---
EXAMINATION: BONE DENSITOMETRY CLINICAL INDICATION: Menopause. COMPARISON: Baseline BD dated 02/13/2021. TECHNIQUE: Using a [employer] DXA System (software version: 13.1) manufactured by [employer], dual-energy x-ray absorptiometry was performed of the lumbar spine and left hip. The images are of good technical quality. Summary results are attached. FINDINGS: LEFT FEMUR, NECK: Current: BMD 0.558 g/cm2, Z-score -1.5, T-score -3.5, osteoporosis. Baseline: BMD 0.597 g/cm2. LEFT FEMUR, TOTAL: Current: BMD 0.562 g/cm2, Z-score -1.8, T-score -3.5, osteoporosis, 10.1% decrease from baseline (<5% change is not significant). Baseline: BMD 0.625 g/cm2. AP SPINE L1-L4: Current: BMD 0.882 g/cm2, Z-score -0.3, T-score -2.5, osteoporosis, 0.9% decrease from baseline (<5% change is not significant). Baseline: BMD 0.890 g/cm2. IDENTIFIED RISK FACTORS: Menopause, hysterectomy, left oophorectomy, osteoporosis. HISTORY OF FRACTURE: None listed. MEDICATIONS: Multivitamin, ERT/SERMS. MM/XR DEXA axial skeleton IMPRESSION: 1. DIAGNOSIS: Osteoporosis based on the lowest T-score value of -3.5 in the femur neck and total femur applying World Health Organization criteria. 2. 10-YEAR FRACTURE RISK PREDICTION, FRAX: According to the guidelines, FRAX calculation should only be performed on patients in the osteopenia bone density category. Therefore, FRAX was not performed on this patient. 3. Treatment Recommendations: NOF guidelines recommend consideration for treatment in postmenopausal women and men age 50 and older presenting with the following: -A hip or vertebral (clinical or morphometric) fracture. -T-score less than or equal to -2.5 at the femoral neck or spine after appropriate evaluation to exclude secondary causes. -Low bone mass at the hip or spine and a 10-year fracture probability by FRAX of greater than or equal to 3% for hip fracture or greater than or equal to 20% for major osteoporotic fracture based on the [place] adapted WHO algorithm. 4. Other Recommendations: All treatment decisions require clinical judgment and consideration of individual patient factors, including patient preferences, comorbidities, previous drug use, risk factors not captured in the FRAX model (e.g. frailty, falls, vitamin D deficiency, increased bone turnover, interval significant decline in bone density) and possible under or overestimation of fracture risk by FRAX. Additional medical evaluation for secondary cause of low bone mineral density may be appropriate. FUTURE SCAN RECOMMENDATION: People with diagnosed cases of osteoporosis or at high risk for fracture should have regular bone mineral density tests. For patients eligible for Medicare, routine testing is allowed once every 2 years. The testing frequency can be increased to one year for patients who have rapidly progressing disease, those who are receiving or discontinuing medical therapy to restore bone mass, or have additional risk factors.
== END 2024-03-01 12:39 | disposition home or self-care (01) ==
LOC: HO.MAMMO 12:38
PROVIDERS: PCP Internal Medicine; Visit Provider Internal Medicine
DX: Z13.820 Encounter for screening for osteoporosis (principal); Z78.0 Asymptomatic menopausal state
CPT/HCPCS: 77080

== ENCOUNTER 2024-10-02 14:27 | Outpatient (REF) | payer MEDICARE, MEDICAID, SELFPAY ==
--- NOTE | ~2024-10-02 | MM_ITS ---
EXAMINATION: MM DIAGNOSTIC DIGITAL BREAST TOMOSYNTHESIS, BILATERAL CLINICAL INFORMATION: Year 3 postoperative follow-up protocol bilateral mammogram. History of right breast DCIS upper outer quadrant. Due for yearly. COMPARISON: Mammography: 07/16/2023, 06/25/2022, 07/23/2021, 06/03/2020, and dating back to 2019. TECHNIQUE: Digital breast tomosynthesis is performed in both the craniocaudal and mediolateral oblique views along with computer-aided detection (CAD). Synthesized 2D images are generated from the tomosynthesis. In addition to standard views, 2-D spot magnification right CC and ML views were obtained of the lumpectomy site1. FINDINGS: There are scattered areas of fibroglandular density (ACR BI-RADS breast composition Category b). There are stable postoperative changes in the upper outer right breast related to prior intervention/lumpectomy. There are no recurrent calcifications identified. There are no developing masses, regions of developing architectural distortion, or suspicious grouped calcifications in either breast. A rounded masslike asymmetry in the medial left breast on the CC view and has no MLO correlate, and has been previously characterized as a prominent island of glandular tissue. It has not changed in size and appearance. MM/MM tomosynthesis diagnostic BI IMPRESSION: There are no significant changes from the prior exam. No findings suspicious for malignancy. Stable benign postoperative changes right breast upper outer quadrant. No recurrent calcifications identified. -Recommend the patient resume routine annual screening to include both breasts. ASSESSMENT: BI-RADS BI-RADS 2 - Benign Findings RECOMMENDATION: 1 year F/U Results were provided to the patient at time of visit by the technologist. This patient's information was entered into a reminder system with a target due date for their next mammogram. Electronically signed by: Fermin Moulton MD 10/03/2024 09:09 AM MONI[place]
== END 2024-10-02 14:28 | disposition home or self-care (01) ==
LOC: HO.MAMMO 14:27
PROVIDERS: PCP Internal Medicine; Visit Provider Internal Medicine
DX: D05.11 Intraductal carcinoma in situ of right breast (principal)
CPT/HCPCS: 77062; 77066

== ENCOUNTER → 2024-10-02 14:30 | Outpatient (BNV) | payer MEDICARE, MEDICAID, SELFPAY | PROVIDERS: PCP Internal Medicine; Visit Provider Radiology Diagnostic Radiology | DX: D05.11 Intraductal carcinoma in situ of right breast (principal) | CPT/HCPCS: 77066; G0279 ==

== ENCOUNTER 2025-02-07 14:40 | Outpatient (AMB) | payer MEDICARE, MEDICAID, SELFPAY ==
--- NOTE | 2025-02-07 15:29 | A.OFFPC_ITS ---
Vital Signs 02/07/25 15:31 Height 5 ft 3 in Weight 105 lb BMI 18.6 BP 112/76 Blood Pressure Location Lt brachial Position Sitting Intake Visit Reasons: follow up Depression Intake Note: Patient here for a follow up Depression Train Control Technician Required: Yes Train Control Technician Language: Flower Machine Operator Name: Viktoria Lombardi MD Information Interpreted: non-clinical & clinical Accompanied by: Self / Same As Patient Allergies penicillin V Allergy (Intermediate, Verified 02/07/25 15:57) Itching Medication List - Last Reconciled 02/07/25 by Viktoria Lombardi MD alendronate 70 mg PO QWEEK 30 days cyanocobalamin (vitamin B-12) (Vitamin B-12) 1,000 mcg PO DAILY escitalopram oxalate 10 mg PO DAILY ibuprofen (Advil) 200 mg PO Q6H PRN tamoxifen 20 mg (2 x 10 mg) PO DAILY trazodone 100 mg PO BEDTIME Tobacco use date assessed: 02/07/25 Fall risk assessment: No Falls in past year Last assessed Fall Risk: 02/07/25 Dental Screening Dental Screen Date: 02/07/25 Did you have a dental visit in the last 12 months?: No Did you have a dental problem in the last 6 months where you did not have access to dental care?: No Was dental information given to patient?: Patient declined HPI HPI Comments History of Present Illness Details The patient is a 69-year-old female presenting for a wellness check-up and management of chronic conditions. Her past medical history includes right breast cancer treated with a lumpectomy in July 2021, for which she has been adhering to a course of tamoxifen aimed to conclude in 2025. She is concurrently treated for osteoporosis with weekly alendronate and is scheduled for endocrine consultation for further evaluation. She has longstanding major depressive disorder and anxiety disorder, with her latest PHQ-9 score of 1 reflecting effective management with escitalopram. Despite this progress, she reports ongoing insomnia. Additionally, her life circumstances have changed; she currently resides in her brother?s basement, which she finds unpleasant, exacerbating her feelings of anxiety. [facility] Medical History (Updated 02/07/25 @ 19:57 by Viktoria Lombardi MD) Anxiety Osteoporosis Mild recurrent major depression Depression Cognitive impairment Dyslipidemia Chronic headaches Surgical History S/P lumpectomy, right breast History of surgery Family History Father Cirrhosis Mother Diabetes Hypertension Family/Other Chronic mental illness Sister Breast cancer Sister Lung cancer Cancer of kidney Family/Other Breast cancer Substance use disorder Social History Household Members: Family Housing: Apartment Alcohol intake: never Patient Tobacco Use Status: Never used Tobacco e-Cigarette/Vaping Use: Never Used Second Hand Smoke Exposure: No service: No Current occupational status: disabled Cognitive needs: No Hearing needs: No Vision needs: No Female Reproductive History Menstrual Age of Menarche: 11 Questionnaire PHQ-9 Over the last 2 weeks, how often have you been bothered by any of the following problems? 1. Little interest or pleasure in doing things: not at all 2. Feeling down, depressed, or hopeless: several days 3. Trouble falling or staying asleep, or sleeping too much: not at all 4. Feeling tired or having little energy: not at all 5. Poor appetite or overeating: not at all 6. Feeling bad about yourself - or that you are a failure or have let yourself or your family down: not at all 7. Trouble concentrating on things, such as reading the newspaper or watching television: not at all 8. Moving or speaking so slowly that other people could have noticed. Or the opposite - being so fidgety or restless that you have been moving around a lot more than usual: not at all 9. Thoughts that you would be better off or of hurting yourself in some way: not at all Total score: 1 Depression Screening Interpretation: Negative Depression Screening Done: Yes 49820 - PHQ-9 Billing: Yes Source: Developed by Drs. Norm Alba, Prerna Bojorquez, Constantin Marley and colleagues, with an educational ivette from [employer]. Thrive Questionnaire Date Thrive assessed: 02/07/25 I am a: Patient What is your living situation today?: I have a steady place to live Within the past 12 months, did the food you bought not last and you didn't have the money to get more?: Never true Within the past 12 months, did you worry whether your food would run out before you got money to buy more?: Never true Do you have trouble paying for medicines?: No Do you have trouble getting transportation to medical appointments?: No Do you have trouble paying your heating and electricity bill?: No Do you have trouble taking care of your child, family member or friend?: No Do you have trouble with day-to-day activities such as bathing, preparing meals, shopping, managing finances, etc.?: No Are you currently unemployed and looking for a job?: No Are you interested in more education?: No Please select the resources that you would like help with: None Currently or been in a relationship where the following occur: No concerns reported THRIVE Score: 0 AUDIT C Alcohol Use Questionnaire (AUDIT-C) 1. How often do you have a drink containing alcohol?: Never Total Score: 0 ANDREW-7 AMB Questionnaire ANDREW-7 Date ANDREW - 7 assessed: 02/07/25 Feeling nervous, anxious, or on edge: 1 = Several days Not being able to stop or control worryin = Not at all Worrying too much about different things: 0 = Not at all Trouble relaxin = Not at all Being so restless that it is hard to sit still: 0 = Not at all Becoming easily annoyed or irritable: 0 = Not at all Feeling afraid as if something awful might happen: 0 = Not at all Total ANDREW-7 score (0-4 normal; 5-9 mild; 10-14 moderate; 15-21 severe): 1 Source: Developed by Drs. Norm Alba, Prerna Bojorquez, Constantin Marley and colleagues, with an educational ivette from [employer]. ANDREW-7 Assessment Billing ANDREW-7 Assessment Tool: ANDREW-7 Assessment 07208 Review of Systems Const All systems reviewed & are unremarkable except as noted in HPI and below Card Denies chest pain at rest, Denies chest pain with activity, Denies edema, Denies irregular heart rhythm, Denies claudication, Denies dyspnea, Denies dyspnea on exertion, Denies orthopnea, Denies paroxysmal nocturnal dyspnea and Denies slow heart rate Resp Denies cough, Denies dyspnea and Denies dyspnea on exertion GI Denies abdominal pain, Denies change in bowel habits, Denies excessive flatus, Denies nausea and Denies vomiting Denies urinary incontinence, Denies urinary hesitancy and Denies urinary urgency Physical exam (Primary Care) Vital Signs: Last Vital Signs BP 112/76 02/07/25 15:31 BMI result Body Mass Index 18.6 Tobacco/Smoking Status: Tobacco use Status Tobacco use date assessed 02/07/25 02/07/25 15:38 Patient Tobacco Use Status Never used Tobacco 02/07/25 15:35 e-Cigarette/Vaping Use Never Used 02/07/25 15:35 PHQ-9: PHQ-9 Score PHQ-9: Total score 1 02/07/25 16:00 Depression Screening Interpretation: Negative Thrive Assessment: Date of Thrive Assessment Date Thrive assessed 02/07/25 02/07/25 15:35 Currently or been in a relationship where the following occur: No concerns repo rted Resp Effort & Inspection: normal respiratory effort Auscultation: clear to auscultation bilaterally Cardio Jugular venous distension: no JVD Rate: regular rate Rhythm: regular rhythm Heart sounds: S1 normal heart sound present and S2 normal heart sound present Extrem General: Yes full ROM Coding Level of Care Code Est Pt Level 4 (52641) Complex EM visit Add On G2211 Diagnoses Mild recurrent major depression F33.0 Age-related osteoporosis without current pathological fracture M81.0 Osteoporosis type: age-related Presence of current pathological fracture: without current pathological fracture ANDREW (generalized anxiety disorder) F41.1 Insomnia G47.00 Additional Codes ANDREW-7 Assessment Billing - ANDREW-7 Assessment Tool: ANDREW-7 Assessment 65492 ([id number]) PHQ-9 - 02729 - PHQ-9 Billing: Yes ([id number]) Time Spent (min) 23 Assessment & Plan Assessment & Plan (1) Mild recurrent major depression: Code(s): F33.0 - Major depressive disorder, recurrent, mild Category: Medical (2) Osteoporosis: Code(s): M81.0 - Age-related osteoporosis without current pathological fracture Category: Medical Qualifiers: Osteoporosis type: age-related Presence of current pathological fracture: without current pathological fracture Qualified Code(s): M81.0 - Age- related osteoporosis without current pathological fracture (3) ANDREW (generalized anxiety disorder): Code(s): F41.1 - Generalized anxiety disorder Category: Medical (4) Insomnia: Code(s): G47.00 - Insomnia, unspecified Category: Medical Plan Management during this visit focuses largely on ongoing surveillance and treatment continuity for chronic conditions. Tamoxifen for breast cancer post- lumpectomy remains as planned for five years, with hematology and oncology oversight continuing. For osteoporosis, ongoing alendronate therapy is maintained, and an advanced practice registered nurse will evaluate further management. Noticeable stability is observed in her depression score; however, sleep disturbances are acknowledged, with the possibility of adjusting trazodone. The patient's current basement living arrangement at her sibling's residence seems to add to her anxiety, so future housing reevaluation might be necessary. Essential lab tests, mammography, and colon cancer screening are pending for the next months, following which results will be reviewed and assessed. Patient was informed and verbally consented to the use of an ambient scribe for clinic note documentation during this visit. During today?s visit, detailed discussions addressed the patient's continuity of tamoxifen therapy through 2025, necessitated by the prior management of right breast cancer via lumpectomy. Osteoporosis treatment continues under existing regimens, yet consults with endocrinology will refine ongoing strategies further. During our conversation, the patient was informed about the benefits of current therapies and the role of lifestyle adjustments in further risk mitigation, like addressing her residency condition affecting her quality of life. Potential increases in trazodone for sleep improvement were proposed, considering her present difficulties sleeping. We reviewed her up-to-date mental health accounts confirming positive trends, with a keen focus on her anxiety driven by current living conditions. Future revisits will include reviewing bone health status and preparation for diagnostic requisites like Cologuard as instructed. Orders: Orders IRON PROFILE Today D64.9 - Anemia, unspecified Vitamin B12 and Folate Today E53.8 - Deficiency of other specified B group vitamins Lipid Panel Today E78.5 - Hyperlipidemia, unspecified Complete Blood Count Auto Diff Today D64.9 - Anemia, unspecified Vitamin D 25-OH Total Today E55.9 - Vitamin D deficiency, unspecified Comprehensive Clay. Panel Fast Today M81.0 - Age-related osteoporosis without current pathological fracture Referrals Cologuard Test Z12.11 - Encounter for screening for malignant neoplasm of colon, Z12.12 - Encounter for screening for malignant neoplasm of rectum Endocrinology Referral M81.0 - Age-related osteoporosis without current pathological fracture Patient Instructions: - Continue tamoxifen therapy as prescribed until 2025. - Maintain weekly alendronate for osteoporosis. - Schedule and attend the upcoming endocrinology appointment. - Visit the lab for fasting blood tests as discussed. - Prepare for your Cologuard test; expect this to arrive by mail. - Consider changing trazodone dosage for sleep improvement. - Re-evaluate your current living situation if anxiety persists. - Maintain follow-up mammography annually. - Monitor any changes in mental health and report concerns promptly.
[2025-02-07 15:31] VITALS: BP 112/76; BMI 18.6
== END 2025-02-07 16:09 | disposition home or self-care (01) ==
LOC: HO.HMCH 14:41
PROVIDERS: PCP Internal Medicine; Visit Provider Internal Medicine
DX: F33.0 Major depressive disorder, recurrent, mild (principal); M81.0 Age-related osteoporosis without current pathological fracture; F41.1 Generalized anxiety disorder; G47.00 Insomnia, unspecified

== ENCOUNTER → 2025-02-07 14:40 | Outpatient (BNVA) | payer MEDICARE, MEDICAID, SELFPAY | PROVIDERS: PCP Internal Medicine; Visit Provider Internal Medicine | DX: F33.0 Major depressive disorder, recurrent, mild (principal); M81.0 Age-related osteoporosis without current pathological fracture; F41.1 Generalized anxiety disorder; G47.00 Insomnia, unspecified | CPT/HCPCS: 96127; 99212 ==

== ENCOUNTER 2025-02-12 10:41 | Outpatient (REF) | payer MEDICARE, MEDICAID, SELFPAY ==
[2025-02-12 11:00] LABS: MANUAL DIFF FLAG NO
[2025-02-12 11:29] LABS: Basophils Percent Auto 0.5 % (0-2); Eosinophils Percent Auto 0.3 % (0-4); Hematocrit 44.5 % (37.0-47.0); Hemoglobin 14.3 g/dl (12.0-16.0); Imm Gran Abs Auto 0.01 X10*3/uL (0.00-0.03); Imm Gran Pct Auto 0.2 % (0.0-0.4); Lymphocytes Absolute Auto 1.1 X10*3/uL (1.2-4.9); Lymphocytes Percent Auto 17.5 % (20-40); Mean Corpuscular HGB Conc 32.1 g/dl (31.0-35.0); Mean Corpuscular Hemoglobin 29.1 pg (27.0-33.0); Mean Corpuscular Volume 90.4 fL (80.0-98.0); Mean Platelet Volume 9.7 fL (9.4-12.3); Monocytes Absolute Auto 0.5 X10*3/uL (0.1-1.2); Monocytes Percent Auto 8.4 % (2-11); Neutrophils Absolute Auto 4.7 x10*3/uL (2.0-8.3); Neutrophils Percent Auto 73.1 % (45-73); Platelet Count 299 X10*3/uL (160-400); Red Blood Count 4.92 X10*6/uL (4.20-5.50); Red Cell Distribution Width 12.4 % (11.0-16.0); White Blood Count 6.4 X10*3/uL (4.8-10.8)
[2025-02-12 12:22] LABS: Alanine Aminotransferase 17 U/L (0-31); Albumin Level 4.6 g/dL (3.5-5.0); Alkaline Phosphatase 92 U/L (39-117); Anion Gap 12 (12-20); Aspartate Amino Transferase 23 U/L (5-31); Bilirubin Total 0.6 mg/dL (0.0-1.0); Blood Urea Nitrogen 15 mg/dL (9-16); Carbon Dioxide 29 mmol/L (22-29); Chloride 104 mmol/L (96-108); Cholesterol 249 mg/dL (<200); Estimated Glomerular Filt Rate > 60; Glucose Fasting 98 mg/dL (60-99); HDL Cholesterol 76 mg/dL (>40); Iron 89 mcg/dL (30-160); LDL Cholesterol Calculated 161 mg/dL (<100); Percent Iron Saturation 30 % (15-50); Sodium 140 mmol/L (135-145); Total Iron Binding Capacity 295 mcg/dL (228-428); Total Protein 8.1 g/dL (6.5-8.0); Triglycerides 62 mg/dL (<150); Unsaturated Iron Binding 206 ug/dL
[2025-02-12 12:38] LABS: Vitamin D 25-OH Total 42.5 ng/mL (>30)
[2025-02-12 12:48] LABS: Folate 13.7 ng/mL (> or = 4.0); Vitamin B12 883 pg/mL (200-900)
== END 2025-02-12 10:42 | disposition home or self-care (01) ==
LOC: HO.LAB 10:41
PROVIDERS: PCP Internal Medicine; Visit Provider Internal Medicine
DX: E55.9 Vitamin D deficiency, unspecified (principal); E53.8 Deficiency of other specified B group vitamins; E78.5 Hyperlipidemia, unspecified; D64.9 Anemia, unspecified; M81.0 Age-related osteoporosis without current pathological fracture
CPT/HCPCS: 36415; 80053; 80061; 82306; 82607; 82746; 83540; 85025

== ENCOUNTER 2025-02-22 14:07 | Outpatient (AMB) | payer MEDICARE, MEDICAID, SELFPAY ==
--- NOTE | 2025-02-22 14:13 | AM.OFFVISMDC ---
Intake Vital Signs 02/22/25 14:15 Height 5 ft 3 in Weight 104 lb BMI 18.4 BP 110/70 Blood Pressure Location Lt brachial Position Sitting Intake Visit Reasons: SWV [id number] Intake Note: Patient here for subsequent annual wellness visit Physician General Practice Required: No Accompanied by: Self / Same As Patient Allergies penicillin V Allergy (Intermediate, Verified 02/22/25 14:42) Itching Medication List - Last Reconciled 02/22/25 by Viktoria Lombardi MD alendronate 70 mg PO QWEEK 30 days cyanocobalamin (vitamin B-12) (Vitamin B-12) 1,000 mcg PO DAILY escitalopram oxalate 10 mg PO DAILY ibuprofen (Advil) 200 mg PO Q6H PRN tamoxifen 20 mg (2 x 10 mg) PO DAILY trazodone 100 mg PO BEDTIME HPI HPI Comments History of Present Illness Details The patient is a 69-year-old female presenting for her Medicare Annual Wellness Exam. PPP handed to patient. Dawson of care reviewed. She continues to manage osteoporosis with alendronate, following diagnosis through a bone density scan in February 2024. Management of her depression with anxiety involves escitalopram and trazodone for sleep disturbances. Her past medical history includes a lumpectomy for breast cancer in July 2021, with ongoing tamoxifen treatment. Her family history includes maternal diabetes, hypertension, and cirrhosis. Paternal history notes cirrhosis. The patient's current medication regimen includes lisinopril for hypertension. She denies any tobacco or alcohol use. Primary prevention measures have been consistent with annual screenings, including Cologuard, mammography, and immunizations. Her cholesterol level is mildly elevated at 249 mg/dL but does not currently warrant pharmacologic intervention. Guidance was provided on completing the upcoming Cologuard test. - Annual mammogram completed at the end of last year. - Bone density scan performed in February 2024 indicating osteoporosis; next scan scheduled for 2025. - Pneumonia and tetanus vaccinations up to date. - Negative Cologuard test result in 2021; advised to complete test again. - Renal function and glucose (98 mg/dL) within normal limits. - Cholesterol 249 mg/dL, no immediate intervention required. - Discussion on current medications: alendronate, lisinopril, tamoxifen, escitalopram, trazodone. [facility] Medical History Anxiety Osteoporosis Mild recurrent major depression Depression Cognitive impairment Dyslipidemia Chronic headaches Surgical History S/P lumpectomy, right breast History of surgery Family History (Updated 02/22/25 @ 14:48 by Viktoria Lombardi MD) Father Cirrhosis Mother Diabetes Hypertension Cirrhosis Family/Other Chronic mental illness Sister Breast cancer Sister Lung cancer Cancer of kidney Family/Other Breast cancer Substance use disorder Social History Household Members: Family Housing: Apartment Alcohol intake: never Patient Tobacco Use Status: Never used Tobacco e-Cigarette/Vaping Use: Never Used Second Hand Smoke Exposure: No service: No Current occupational status: disabled Cognitive needs: No Hearing needs: No Vision needs: No Female Reproductive History Menstrual Age of Menarche: 11 Questionnaire Medicare Wellness Checkup [age] What gender do you identify with?: female During the past 4 weeks, how much have you been bothered by emotional problems such as feeling anxious, depressed, irritable, sad or downhearted, and blue?: not at all During the past 4 weeks, has your physical & emotional health limited your social activities with family, friends, neighbors, or groups?: not at all During the past 4 weeks, how much bodily pain have you generally had?: mild pain During the past 4 weeks, was someone available to help you if you needed & wanted help?: yes, as much as I wanted During the past 4 weeks, what was the hardest physical activity you could do for at least 2 minutes?: moderate Can you get to places out of walking distance without help? (For eg., can you travel alone on buses, taxis or drive your car?): No Can you go shopping for groceries or clothes without someone's help?: No Can you prepare your own meals?: Yes Can you do your housework without help?: Yes Because of any health problems, do you need the help of another person with your personal care needs such as eating, bathing, dressing or getting around the house?: No Can you handle your own money without help?: Yes During the past 4 weeks, how would you rate your health in general?: good During the past 4 weeks how have things been going for you?: pretty well Are you having difficulties driving your car?: not applicable, I don't use a car Do you always fasten your seat belt when you are in a car?: yes, usually During past 4 weeks, have you been bothered by the following: never: Falling or dizzy when standing up, Sexual problems?, Trouble eating well? and Tiredness or fatigue?, sometimes: Teeth or denture problems? and always: Problems using the telephone? Have you fallen 2 or more times in the past year?: No Are you afraid of falling?: No Are you a smoker?: no During the past 4 weeks, how many drinks of wine, beer, or other alcoholic beverages did you have?: no alcohol at all Do you exercise for about 20 minutes 3 or more times a week?: no, I usually do not exercise this much Have you been given information to help with the following?: no: Hazards in your house that might hurt you? and no: Keeping track of your medications? How often do you have trouble taking medicines the way you have been told to take them?: I always take medicine as prescribed How confident are you that you can control & manage most of your health problems?: somewhat confident What is your race?: or origin or descent Mini Mental State Exam (MMSE) Orientation What is the (year) (season) (date) (day) (month)?: date, day and month Where are we (state) (county) (town or city) (hospital) (floor)?: state, county, town or city, hospital/clinic and floor Registration Name of 3 unrelated objects clearly and slowly, then ask patient to repeat all 3 of them. (1st repeat determines score. Make sure they can repeat all three): object 1, object 2 and object 3 Attention & Calculation (CHOOSE ONE) Spell WORLD backwards (DLROW): 5 letters Recall Ask patient to repeat the 3 items from question #3.: object 1 and object 2 Language Show patient a wristwatch & ask what it is. Repeat for pencil.: watch and pencil Ask the patient to repeat the phrase 'No ifs, ands, or buts' after you.: correct Ask the patient to 'take a piece of paper with their right hand' 'fold paper in half' 'place paper on floor': take paper in right hand, fold paper in half and place paper on floor Print the sentence 'CLOSE YOUR EYES' on a piece. If patient actually closes eyes then score.: followed written direction Give patient a blank piece of paper & ask to write a sentence. Score if it contains a noun & verb.: sentence contains subject and verb Score Score: 26 Activity of Daily Living Bathing - sponge bath, tub bath or shower: receives no assistance (gets in/out by self, if usual bathing means Dressing - getting clothes from closets & drawers, including inner/outer garments & fasteners.: gets clothes & gets completely dressed without help Toileting - going to the 'toilet room' for urine/bowel elimination & cleaning self/arranging clothes: goes to toilet room, cleans self, arranges clothes without help Transfer: moves in & out of bed and chair without help (may use support object) Continence: controls urination/bowel movements completely by self Feeding: feeds self without help Total Score: 0 Information obtained from: patient Using telephone: independent Traveling: dependent Shopping: dependent Preparing meals: dependent Housework: independent Taking medicine: independent Managing money: independent PHQ-9 Over the last 2 weeks, how often have you been bothered by any of the following problems? 1. Little interest or pleasure in doing things: not at all 2. Feeling down, depressed, or hopeless: not at all 3. Trouble falling or staying asleep, or sleeping too much: several days 4. Feeling tired or having little energy: not at all 5. Poor appetite or overeating: not at all 6. Feeling bad about yourself - or that you are a failure or have let yourself or your family down: not at all 7. Trouble concentrating on things, such as reading the newspaper or watching television: several days 8. Moving or speaking so slowly that other people could have noticed. Or the opposite - being so fidgety or restless that you have been moving around a lot more than usual: not at all 9. Thoughts that you would be better off or of hurting yourself in some way: not at all Total score: 2 Depression Screening Interpretation: Positive Depression Screening Follow-up: Existing condition and Follow-up Visit Requested Depression Screening Done: Yes 88218 - PHQ-9 Billing: Yes Source: Developed by Drs. Norm Alba, Prerna Bojorquez, Constantin Marley and colleagues, with an educational ivette from [employer]. Fall Risk Assessment Fall Risk Assessment Fall risk assessment: No Falls in past year AUDIT C Alcohol Use Questionnaire (AUDIT-C) 1. How often do you have a drink containing alcohol?: Never Total Score: 0 Score Reviewed/Action Taken: No ANDREW-7 AMB Questionnaire ANDREW-7 Date ANDREW - 7 assessed: 02/22/25 Feeling nervous, anxious, or on edge: 0 = Not at all Not being able to stop or control worryin = Not at all Worrying too much about different things: 0 = Not at all Trouble relaxin = Not at all Being so restless that it is hard to sit still: 0 = Not at all Becoming easily annoyed or irritable: 0 = Not at all Feeling afraid as if something awful might happen: 0 = Not at all Total ANDREW-7 score (0-4 normal; 5-9 mild; 10-14 moderate; 15-21 severe): 0 Source: Developed by Drs. Norm Alba, Prerna Bojorquez, Constantin Marley and colleagues, with an educational ivette from [employer]. ANDREW-7 Assessment Billing ANDREW-7 Assessment Tool: ANDREW-7 Assessment 71827 Thrive Questionnaire Date Thrive assessed: 02/07/25 Review of Systems Const All systems reviewed & are unremarkable except as noted in HPI and below Card Denies chest pain at rest, Denies chest pain with activity, Denies edema, Denies irregular heart rhythm, Denies claudication, Denies dyspnea, Denies dyspnea on exertion, Denies orthopnea, Denies paroxysmal nocturnal dyspnea and Denies slow heart rate Resp Denies cough, Denies dyspnea and Denies dyspnea on exertion GI Denies abdominal pain, Denies change in bowel habits, Denies excessive flatus, Denies nausea and Denies vomiting Physical Exam Vital Signs: Last Vital Signs BP 110/70 02/22/25 14:15 BMI result Body Mass Index 18.4 Const Orientation/consciousness: patient oriented x3 Resp Effort & Inspection: normal respiratory effort Auscultation: clear to auscultation bilaterally Cardio Jugular venous distension: no JVD Rate: regular rate Rhythm: regular rhythm Heart sounds: S1 normal heart sound present and S2 normal heart sound present Neuro General: patient oriented x3 and no focal motor deficits Romberg Test: Negative Extrem General: Yes full ROM Psych Appearance: grossly normal Assessment & Plan Assessment & Plan (1) Encounter for Medicare annual wellness exam: Code(s): Z00.00 - Encounter for general adult medical examination without abnormal findings (2) Mild recurrent major depression: Code(s): F33.0 - Major depressive disorder, recurrent, mild Plan Her medication regimen for depression and anxiety, including escitalopram and trazodone, remains. Breast cancer surveillance persists with tamoxifen. Hypertension management continues with lisinopril. I've advised completion of pending Cologuard testing and continuation of existing vaccination protocols. Current cholesterol levels are monitored without intervention, emphasizing lifestyle maintenance.: Patient was informed and verbally consented to the use of an ambient scribe for clinic note documentation during this visit. During our session, I reviewed the patient's treatment for osteoporosis with alendronate and her monitoring plan, ensuring she understands the need for the recurring bone density scans. We discussed her psychological well-being and managing depression and anxiety with escitalopram and trazodone. I highlighted necessary vigilance with tamoxifen, given her breast cancer history. Essential hypertension management with lisinopril was reinforced. I reiterated the need for performing the Cologuard test promptly. We talked about maintaining her vaccination schedule and blood results, where cholesterol is monitored for compliance without needing treatment. Her lifestyle practices, including avoiding smoking and alcohol, protect her health, which we continue to support. Patient Instructions: - Continue prescribed medications: alendronate, lisinopril, escitalopram, trazodone, tamoxifen. - Complete pending Cologuard test. - Maintain current vaccination status. - Monitor cholesterol levels with recommended lifestyle practices. - Return for regular follow-up to ensure ongoing management and care. - Contact if any new symptoms or concerns arise. Quality Reporting (2019) Fall Risk Screening ([facility] 139) Fall risk assessment: No Falls in past year Depression/Bipolar (159/160/161/177) PHQ-9: Total score: 2 Coding Level of Care Code Medicare Subsequent (G0439) Diagnoses Encounter for Medicare annual wellness exam Z00.00 Mild recurrent major depression F33.0 Additional Codes ANDREW-7 Assessment Billing - ANDREW-7 Assessment Tool: ANDREW-7 Assessment 28042 ([id number]) PHQ-9 - 33644 - PHQ-9 Billing: Yes ([id number]) Time Spent (min) 36 Advance Care Planning Did not discuss due to Cultural/Spiritual beliefs: No
[2025-02-22 14:15] VITALS: BP 110/70; BMI 18.4
== END 2025-02-22 14:59 | disposition home or self-care (01) ==
LOC: HO.HMCH 14:07
PROVIDERS: PCP Internal Medicine; Visit Provider Internal Medicine
DX: Z00.00 Encounter for general adult medical examination without abnormal findings (principal); F33.0 Major depressive disorder, recurrent, mild

== ENCOUNTER → 2025-02-22 14:07 | Outpatient (BNVA) | payer MEDICARE, MEDICAID, SELFPAY | PROVIDERS: PCP Internal Medicine; Visit Provider Internal Medicine | DX: Z00.00 Encounter for general adult medical examination without abnormal findings (principal); F33.0 Major depressive disorder, recurrent, mild; E11.9 Type 2 diabetes mellitus without complications; I10 Essential (primary) hypertension; K74.60 Unspecified cirrhosis of liver; Z79.899 Other long term (current) drug therapy | CPT/HCPCS: 96127 ==

== ENCOUNTER 2025-08-22 12:44 | Outpatient (AMB) | payer MEDICARE, MEDICAID, SELFPAY ==
--- NOTE | 2025-08-22 12:46 | A.OFFVIS_ITS ---
Vital Signs 08/22/25 12:55 Height 4 ft 11.53 in Weight 104 lb 0.931 oz BMI 20.6 BP 124/72 Blood Pressure Location Lt brachial Position Sitting Pulse 71 Pulse Source Pulse Oximeter Pulse Oximetry (%) 97 Oxygen Delivery Method Room Air Intake Visit Reasons: Osteoporisis Intake Note: New patient internally referred by PCP for Osteoporosis. Natural Sciences Department Chair Required: Yes Natural Sciences Department Chair Language: Field Radio Operator Services: Natural Sciences Department Chair Offered & Declined Natural Sciences Department Chair Name: Sister will interpret Accompanied by: Sister Allergies penicillin V Allergy (Intermediate, Verified 08/22/25 12:57) Itching HPI Comments Details: 69 YO Female with hx of breast ca is seen in consultation at the request of PCP for Osteoporosis.Hx obtained via sister acting as foreign language interpreter First diagnosed in 6 yrs . Received treatment in the past with alendronate 3-4 yrs . Tolerated treatment well without complication. No history of pathologic fracture or ONJ. Has several servings of dietary calcium per day in the form of cheese . Takes Calcium supplement ? mg daily in divided doses. Takes ? IU of Vitamin D daily. Denies ever using PPI, anticoagulant, antiepileptic or glucocorticoid medi cation. 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 Not UTD on dental cleanings and sees dentist every 6 months. No planned upcoming dental work or extractions. No tobacco use or heavy ETOH use DXA dated 03/01/24 :FINDINGS: LEFT FEMUR, NECK: Current: BMD 0.558 g/cm2, Z-score -1.5, T-score -3.5, osteoporosis. Baseline: BMD 0.597 g/cm2. LEFT FEMUR, TOTAL: Current: BMD 0.562 g/cm2, Z-score -1.8, T-score -3.5, osteoporosis, 10.1% decrease from baseline (<5% change is not significant). Baseline: BMD 0.625 g/cm2. AP SPINE L1-L4: Current: BMD 0.882 g/cm2, Z-score -0.3, T-score -2.5, osteoporosis, 0.9% decrease from baseline (<5% change is not significant). Baseline: BMD 0.890 g/cm2. IDENTIFIED RISK FACTORS: Menopause, hysterectomy, left oophorectomy, osteoporosis. HISTORY OF FRACTURE: None listed. MEDICATIONS: Multivitamin, ERT/SERMS. MM/XR DEXA axial skeleton IMPRESSION: 1. DIAGNOSIS: Osteoporosis based on the lowest T-score value of -3.5 in the femur neck and total femur applying World Health Organization criteria. Labs: [facility] Medical History Anxiety Osteoporosis Mild recurrent major depression Depression Cognitive impairment Dyslipidemia Chronic headaches Surgical History S/P lumpectomy, right breast History of surgery Family History Father Cirrhosis Mother Diabetes Hypertension Cirrhosis Family/Other Chronic mental illness Sister Breast cancer Sister Lung cancer Cancer of kidney Family/Other Breast cancer Substance use disorder Social History Household Members: Family Housing: Apartment Alcohol intake: never Patient Tobacco Use Status: Never used Tobacco e-Cigarette/Vaping Use: Never Used Second Hand Smoke Exposure: No service: No Current occupational status: disabled Cognitive needs: No Hearing needs: No Vision needs: No Female Reproductive History Menstrual Age of Menarche: 11 Physical Exam Vital Signs: Last Vital Signs Pulse 71 08/22/25 12:55 BP 124/72 08/22/25 12:55 Pulse Ox 97 08/22/25 12:55 Oxygen Delivery Method Room Air 08/22/25 12:55 BMI result Body Mass Index 20.6 There are no Cushingoid features. Absence of blue sclera. Absence of kyphosis. Thyroid gland is of nl size and weighs 15 gms. There are no thyroid nodules palpated. Lungs CTA. Heart S1 S2 Reg R/R Abdominal exam benign. Muscle strength 5/5 . Examination of spine reveals absence of tenderness on palpation Assessment & Plan Assessment & Plan (1) Osteoporosis: Code(s): M81.0 - Age-related osteoporosis without current pathological fracture Category: Medical Qualifiers: Osteoporosis type: age-related Presence of current pathological fracture: without current pathological fracture Qualified Code(s): M81.0 - Age- related osteoporosis without current pathological fracture Plan: This is a 69-year-old female with a history of osteoporosis and breast cancer with partial secondary workup. The patient is currently being treated with alendronate 70 mg Q weekly Plan is to complete the secondary workup by checking a phosphorus level, TSH, free T4, 24 hour urine for calcium and creatinine, urine immunofixation. Will ensure 1200 mg of calcium supplementation and continued vitamin-D supplementation. We will repeat DEXA bone density in 02/2026 along with urine NTX. If there is any decline in bone density, could transition the patient at that point to Prolia. Orders: Orders Thyroid Stimulating Hormone Today M81.0 - Age-related osteoporosis without current pathological fracture Phosphorus Today M81.0 - Age-related osteoporosis without current pathological fracture Creatinine, 24 Hr Group Today M81.0 - Age-related osteoporosis without current pathological fracture Collagen Crosslinks NTX Today M81.0 - Age-related osteoporosis without current pathological fracture XR DEXA axial skeleton 6 Months M81.0 - Age-related osteoporosis without current pathological fracture Free T4 (Free Thyroxine) Today M81.0 - Age-related osteoporosis without current pathological fracture Calcium, 24 Hr Ur Today M81.0 - Age-related osteoporosis without current pathological fracture Immunofixation, Random Urine Today M81.0 - Age-related osteoporosis without current pathological fracture Coding Level of Care Code New Pt Level 4 (69005) Diagnoses Age-related osteoporosis without current pathological fracture M81.0 Osteoporosis type: age-related Presence of current pathological fracture: without current pathological fracture
[2025-08-22 12:55] VITALS: BP 124/72; PULSE 71; O2SAT 97; BMI 20.6
== END 2025-08-22 13:38 | disposition home or self-care (01) ==
LOC: HO.ENCR 12:44
PROVIDERS: PCP Internal Medicine; Visit Provider Internal Medicine Endocrinology, Diabetes & Metabolism
DX: M81.0 Age-related osteoporosis without current pathological fracture (principal)
CPT/HCPCS: 99204

== ENCOUNTER → 2025-08-22 12:44 | Outpatient (BNVA) | payer MEDICARE, MEDICAID, SELFPAY | PROVIDERS: PCP Internal Medicine; Visit Provider Internal Medicine Endocrinology, Diabetes & Metabolism | DX: M81.0 Age-related osteoporosis without current pathological fracture (principal) | CPT/HCPCS: 99202 ==

== ENCOUNTER 2025-08-23 13:57 | Outpatient (AMB) | payer MEDICARE, MEDICAID, SELFPAY ==
[2025-08-23 14:05] VITALS: BP 118/60; PULSE 65; RESP 18; TEMP 36.3; O2SAT 95; BMI 20.9
--- NOTE | 2025-08-23 14:05 | A.OFFPC_ITS ---
Vital Signs 08/23/25 14:05 Height 4 ft 11.53 in Weight 105 lb 4 oz BMI 20.9 BP 118/60 Blood Pressure Location Lt brachial Position Sitting Respiration 18 Pulse 65 Pulse Source Pulse Oximeter Temp 97.3 F Temp Source Temporal Artery Scan Pulse Oximetry (%) 95 Oxygen Delivery Method Room Air Intake Visit Reasons: depression, osteoporosis [employer] Tech Required: No Accompanied by: Self / Same As Patient Allergies penicillin V Allergy (Intermediate, Verified 08/23/25 14:38) Itching Medication List - Last Reconciled 08/23/25 by Viktoria Lombardi MD alendronate 70 mg PO QWEEK 30 days cyanocobalamin (vitamin B-12) (Vitamin B-12) 1,000 mcg PO DAILY escitalopram oxalate 10 mg PO DAILY ibuprofen (Advil) 200 mg PO Q6H PRN tamoxifen 20 mg (2 x 10 mg) PO DAILY trazodone 100 mg PO BEDTIME Tobacco use date assessed: 08/23/25 Fall risk assessment: No Falls in past year Last assessed Fall Risk: 08/23/25 Dental Screening Dental Screen Date: 08/23/25 Did you have a dental visit in the last 12 months?: No Did you have a dental problem in the last 6 months where you did not have access to dental care?: No Was dental information given to patient?: No HPI HPI Comments History of Present Illness Details The patient is a 69-year-old female presenting with monitoring of chronic conditions including osteoporosis and depression. Osteoporosis management is ongoing without endocrinology involvement, and no recent changes in treatment have been noted. The patient's depression has shown slight improvement, with a PHQ-9 score of 5, and she reports feeling better overall. The patient reports left ear pain, described as mild irritation, expected to resolve with antibiotic treatment. Preventative care includes up-to-date colon cancer screening and plans for laboratory tests in six months. [facility] Medical History (Updated 08/23/25 @ 22:03 by Viktoria Lombardi MD) Anxiety Osteoporosis Mild recurrent major depression Depression Cognitive impairment Dyslipidemia Chronic headaches Surgical History S/P lumpectomy, right breast History of surgery Family History Father Cirrhosis Mother Diabetes Hypertension Cirrhosis Family/Other Chronic mental illness Sister Breast cancer Sister Lung cancer Cancer of kidney Family/Other Breast cancer Substance use disorder Social History Household Members: Family Housing: Apartment Alcohol intake: never Patient Tobacco Use Status: Never used Tobacco e-Cigarette/Vaping Use: Never Used Second Hand Smoke Exposure: No service: No Current occupational status: disabled Cognitive needs: No Hearing needs: No Vision needs: No Female Reproductive History Menstrual Age of Menarche: 11 Questionnaire PHQ-9 Over the last 2 weeks, how often have you been bothered by any of the following problems? 1. Little interest or pleasure in doing things: several days 2. Feeling down, depressed, or hopeless: not at all 3. Trouble falling or staying asleep, or sleeping too much: several days 4. Feeling tired or having little energy: several days 5. Poor appetite or overeating: not at all 6. Feeling bad about yourself - or that you are a failure or have let yourself or your family down: several days 7. Trouble concentrating on things, such as reading the newspaper or watching television: several days 8. Moving or speaking so slowly that other people could have noticed. Or the opposite - being so fidgety or restless that you have been moving around a lot more than usual: not at all 9. Thoughts that you would be better off or of hurting yourself in some way: not at all Total score: 5 Depression Screening Interpretation: Positive Depression Screening Follow-up: Existing condition, In treatment and Follow-up Visit Requested Depression Screening Done: Yes 47127 - PHQ-9 Billing: Yes Source: Developed by Drs. Norm Alba, Prerna Bojorquez, Constantin Marley and colleagues, with an educational ivette from [employer]. Thrive Questionnaire Date Thrive assessed: 08/18/25 I am a: Patient What is your living situation today?: I choose not to answer this question Within the past 12 months, did the food you bought not last and you didn't have the money to get more?: I choose not to answer this question Within the past 12 months, did you worry whether your food would run out before you got money to buy more?: Sometimes True Do you have trouble paying for medicines?: I choose not to answer this question Do you have trouble getting transportation to medical appointments?: No Do you have trouble paying your heating and electricity bill?: I choose not to answer this question Do you have trouble taking care of your child, family member or friend?: I choose not to answer this question Do you have trouble with day-to-day activities such as bathing, preparing meals, shopping, managing finances, etc.?: Yes Are you currently unemployed and looking for a job?: No Are you interested in more education?: I choose not to answer this question Please select the resources that you would like help with: Housing/Nursing Home Currently or been in a relationship where the following occur: I choose not to answer THRIVE Score: 1 AUDIT C Alcohol Use Questionnaire (AUDIT-C) 1. How often do you have a drink containing alcohol?: Never Total Score: 0 Score Reviewed/Action Taken: No ANDREW-7 AMB Questionnaire ANDREW-7 Date ANDREW - 7 assessed: 02/22/25 Feeling nervous, anxious, or on edge: 3 = Nearly every day Not being able to stop or control worryin = Nearly every day Worrying too much about different things: 3 = Nearly every day Trouble relaxin = Nearly every day Being so restless that it is hard to sit still: 2 = More than half the days Becoming easily annoyed or irritable: 3 = Nearly every day Feeling afraid as if something awful might happen: 1 = Several days Total ANDREW-7 score (0-4 normal; 5-9 mild; 10-14 moderate; 15-21 severe): 18 Source: Developed by Drs. Norm Alba, Prerna Bojorquez, Constantin Marley and colleagues, with an educational ivette from [employer]. ANDREW-7 Assessment Billing ANDREW-7 Assessment Tool: ANDREW-7 Assessment 23542 Review of Systems Const All systems reviewed & are unremarkable except as noted in HPI and below Card Denies chest pain at rest, Denies chest pain with activity, Denies edema, Denies irregular heart rhythm, Denies claudication, Denies dyspnea, Denies dyspnea on exertion, Denies orthopnea, Denies paroxysmal nocturnal dyspnea and Denies slow heart rate Resp Denies cough, Denies dyspnea and Denies dyspnea on exertion Physical exam (Primary Care) Vital Signs: Last Vital Signs Temp 97.3 F 08/23/25 14:05 Pulse 65 08/23/25 14:05 Resp 18 08/23/25 14:05 BP 118/60 08/23/25 14:05 Pulse Ox 95 08/23/25 14:05 Oxygen Delivery Method Room Air 08/23/25 14:05 BMI result Body Mass Index 20.9 Tobacco/Smoking Status: Tobacco use Status Tobacco use date assessed 08/23/25 08/23/25 14:09 Patient Tobacco Use Status Never used Tobacco 08/23/25 14:09 e-Cigarette/Vaping Use Never Used 08/23/25 14:09 PHQ-9: PHQ-9 Score PHQ-9: Total score 5 08/23/25 14:44 Depression Screening Interpretation: Positive Depression Screening Follow-up: Existing condition, In treatment and Follow-up Visit Requested Thrive Assessment: Date of Thrive Assessment Date Thrive assessed 08/18/25 08/23/25 14:09 Currently or been in a relationship where the following occur: I choose not to answer Resp Effort & Inspection: normal respiratory effort Auscultation: clear to auscultation bilaterally Cardio Jugular venous distension: no JVD Rate: regular rate Rhythm: regular rhythm Heart sounds: S1 normal heart sound present and S2 normal heart sound present Extrem General: Yes full ROM Coding Level of Care Code Est Pt Level 3 (95330) Diagnoses Mild recurrent major depression F33.0 Otitis media H66.90 Age-related osteoporosis without current pathological fracture M81.0 Osteoporosis type: age-related Presence of current pathological fracture: without current pathological fracture Additional Codes ANDREW-7 Assessment Billing - ANDREW-7 Assessment Tool: ANDREW-7 Assessment 36183 ([id number]) PHQ-9 - 12555 - PHQ-9 Billing: Yes ([id number]) Time Spent (min) 19 Assessment & Plan Assessment & Plan (1) Mild recurrent major depression: Code(s): F33.0 - Major depressive disorder, recurrent, mild Category: Medical (2) Otitis media: Code(s): H66.90 - Otitis media, unspecified, unspecified ear Category: Medical (3) Osteoporosis: Code(s): M81.0 - Age-related osteoporosis without current pathological fracture Category: Medical Qualifiers: Osteoporosis type: age-related Presence of current pathological fracture: without current pathological fracture Qualified Code(s): M81.0 - Age- related osteoporosis without current pathological fracture Plan Plan Patient was informed and verbally consented to the use of an ambient scribe for clinic note documentation during this visit. 1. Osteoporosis The patient is not currently under endocrinology care for osteoporosis, and management is ongoing without recent changes. 2. Depression The patient's depression has shown slight improvement, with a PHQ-9 score of 5, and she reports feeling better overall. 3. Ear Pain The patient reports left ear pain, described as mild irritation, expected to resolve with antibiotic treatment. 4. Preventative Care Preventative care includes up-to-date colon cancer screening and plans for laboratory tests in six months. Orders: Orders Lipid Panel 6 Months E78.5 - Hyperlipidemia, unspecified Comprehensive [place]. Panel Fast 6 Months E78.5 - Hyperlipidemia, unspecified Referrals Cologuard Test Z12.11 - Encounter for screening for malignant neoplasm of colon, Z12.12 - Encounter for screening for malignant neoplasm of rectum Medications: New doxycycline hyclate 100 mg PO BID 10 caps 0RF 5 days
== END 2025-08-23 14:50 | disposition home or self-care (01) ==
LOC: HO.HMCH 13:58
PROVIDERS: PCP Internal Medicine; Visit Provider Internal Medicine
DX: F33.0 Major depressive disorder, recurrent, mild (principal); H66.90 Otitis media, unspecified, unspecified ear; M81.0 Age-related osteoporosis without current pathological fracture

== ENCOUNTER 2025-08-23 13:57 | Outpatient (REF) | payer MEDICARE, MEDICAID, SELFPAY ==
[2025-08-23 16:56] LABS: Free T4 (Free Thyroxine) 1.01 ng/dL (0.71-1.85); Thyroid Stimulating Hormone 1.83 uIU/mL (0.32-4.0)
== END 2025-08-23 13:58 | disposition home or self-care (01) ==
LOC: HO.LAB 13:57
PROVIDERS: Absent Provider Internal Medicine Endocrinology, Diabetes & Metabolism; PCP Internal Medicine; Visit Provider Internal Medicine
DX: M81.0 Age-related osteoporosis without current pathological fracture (principal); F33.0 Major depressive disorder, recurrent, mild; H66.90 Otitis media, unspecified, unspecified ear; Z79.899 Other long term (current) drug therapy
CPT/HCPCS: 84100; 84439; 84443; 96127; 99212

== ENCOUNTER 2025-08-28 14:09 | Outpatient (REF) | payer MEDICARE, MEDICAID, SELFPAY ==
[2025-08-28 15:41] LABS: Creatinine, mg/dL 124.95
[2025-08-28 15:45] LABS: Total Volume 24 Hour Urine 325 mL
[2025-08-29 20:48] LABS: Calcium/Creatinine Ratio 228 mg/g creat (30-275); Creatinine 24Hr Urine 0.41 g/24 h (0.50-2.15)
== END 2025-08-28 14:10 | disposition home or self-care (01) ==
LOC: HO.LNP 14:09
PROVIDERS: Visit Provider Internal Medicine Endocrinology, Diabetes & Metabolism
DX: M81.0 Age-related osteoporosis without current pathological fracture (principal)
CPT/HCPCS: 82340; 82570

== ENCOUNTER → 2025-10-30 15:10 | Outpatient (AMB) | payer MEDICARE, MEDICAID, SELFPAY ==
--- NOTE | 2025-10-30 15:13 | A.OFFVIS_ITS ---
Intake Visit Reasons: MCI Allergies penicillin V Allergy (Intermediate, Verified 08/23/25 14:38) Itching Medication List - Last Reconciled 10/30/25 by Laura Lemus MD alendronate 70 mg PO QWEEK 30 days cyanocobalamin (vitamin B-12) (Vitamin B-12) 1,000 mcg PO DAILY escitalopram oxalate 10 mg PO DAILY ibuprofen (Advil) 200 mg PO Q6H PRN tamoxifen 20 mg (2 x 10 mg) PO DAILY trazodone 100 mg PO BEDTIME HPI Comments Details: 70-year-old woman with mild cognitive impairment last seen here in January of 2024. She is here for follow-up after almost 2 years. Her memory is worse compared to 2 yrs ago. Always cleaning at home. Never drove. Does not cook . Lives with sister and spends 7 months in [place] . Needs help shopping. Some hesitancy making decisions. Has some OCD behaviors. Takes a very long showers for an hour. She is sleeping better as long as she takes her meds. r. As long as sister is around and she takes her pills correctly. Her dementia workup was normal. She has cognitive decline noted about 3-4 yrs ago. Wanders at night. She has increasing anxiety and sometimes agitation but no violence. She never attended school or worked. She had a nervous breakdown for 2 months when she was 12 years old and then recovered. No details are known. The patient is aware of some memory issues and but is not sure why she is here. She has some difficulty maintaining sleep at night. Her appetite and weight have been stable. She does not require close supervision and is fairly independent living with 2 of her siblings. She never and has no children. [facility] Medical History (Updated 10/30/25 @ 15:27 by Laura Lemus MD) MCI (mild cognitive impairment) Anxiety Osteoporosis Mild recurrent major depression Depression Cognitive impairment Dyslipidemia Chronic headaches Surgical History S/P lumpectomy, right breast History of surgery Family History Father Cirrhosis Mother Diabetes Hypertension Cirrhosis Family/Other Chronic mental illness Sister Breast cancer Sister Lung cancer Cancer of kidney Family/Other Breast cancer Substance use disorder Social History Household Members: Family Housing: Apartment Alcohol intake: never Patient Tobacco Use Status: Never used Tobacco e-Cigarette/Vaping Use: Never Used Second Hand Smoke Exposure: No service: No Current occupational status: disabled Cognitive needs: No Hearing needs: No Vision needs: No Female Reproductive History Menstrual Age of Menarche: 11 Review of Systems Const Details: Sleep:? Difficulty getting to sleep?admits.? Difficulty maintaining sleep?admits .? Urge to move legs?admits.? Teeth grinding?denies.? Shouting or Kicking during sleep?denies.? Abnormal behavior during sleep?denies.? Excessive sleep?denies.? Snoring?denies.? Daytime sleepiness?denies.? ?? General/Constitutional:? Change in appetite?denies.? Chills?denies.? Fatigue?denies.? Fever?denies .? Weight gain?denies.? Weight loss?admits.? ?? Ophthalmologic:? Blurred vision?denies.? Diminished visual acuity?denies.? ?? ENT:? Stuffiness?denies.? Decreased hearing?admits.? Dry mouth?denies.? Ear pain?denies.? Nosebleed?denies.? Ringing in the ears?denies.? Sinus pain?denies .? Sore throat?denies.? Swollen glands?denies.? ?? Endocrine:? Cold intolerance?denies.? Excessive thirst?denies.? Frequent urination? denies.? Heat intolerance?denies.? ?? Respiratory:? Shortness of breath?denies.? Chest pain?denies.? Cough?denies.? ?? Breast:? Breast lump?denies.? Nipple discharge?denies.? ?? Cardiovascular:? Chest pain at rest?denies.? Chest pain with exertion?denies.? Claudication?denies.? Dizziness?denies.? Fluid accumulation in the legs?denies.? Irregular heartbeat?denies.? Palpitations?denies.? ?? Gastrointestinal:? Abdominal pain?denies.? Constipation?admits.? Diarrhea?denies.? Difficulty swallowing?denies.? Heartburn?denies.? Nausea?denies.? Rectal bleeding?denies.? ?? Hematology:? Easy bruising?denies.? Prolonged bleeding?denies.? ?? Genitourinary:? Frequent urination?admits.? Urgency?denies.? Incontinence?denies.? Erectile Dysfunction?denies.? ?? Musculoskeletal:? Neck pain?denies.? Back pain?denies.? Muscle aches?admits.? Painful joints?admits.? Sciatica?denies.? Weakness?denies.? ?? Podiatric:? Difficulty walking?denies.? Foot numbness?denies.? ?? Neurologic:? Difficulty swallowing?denies.? Balance difficulty?denies.? Coordination? normal.? Difficulty speaking?denies.? Dizziness?denies.? Fainting?denies.? Gait abnormality?denies.? Headache?denies.? Loss of strength?denies.? Loss of use of extremity?denies.? Low back pain?denies.? Memory loss?admits.? Seizures?denies.? Tics?denies.? Tingling/Numbness?denies.? Transient loss of vision?denies.? Tremor?denies.? ?? Psychiatric:? Anxiety?admits.? Auditory/visual hallucinations?denies.? Delusions?admits .? Depressed mood?admits.? Stressors?admits.? Substance abuse?denies.? Suicidal thoughts?denies.? ? Physical Exam Neuro Other: Neurological: ? Abnormal neurological findings:?Anxiety. MMS 27/30.? Mental Status:?alert and oriented X 3 except for date in Jul, but knows it is Wednesday.?,.? Cranial Nerves:?Pupils are equal, round and reactive to light. Fundoscopy shows normal disc bilaterally. External occular muscles are intact. Visual santiago are full, no ptosis. Face is symmetrical, no facial weakness or droop. Facial sensations are normal. Tongue protrudes in midline. Palate elevates symmetrically. Shoulder shrugging is normal..? Motor Examination:?Normal muscle tone, bulk and strength,?No atrophy or fasciculations,?No drift of the extended upper extremities,?Deep tendon reflexes are 2+?,?Plantars are flexor?.? Straight Leg Raising:?90 degrees.? Sensory Exam:?Normal light touch, temperature, pinprick, vibration and joint-position sensations?,?Rhomberg sign is absent.? Coordination:?no ataxia,?no titubation,?[id number]-[id number], [id number]-[id number] test and rapid alternating movements were normal.? Gait Exam:?Within normal limits.? Cerebellar Signs:?[id number] and lffe-wl-cgvm is normal,?no dysdiadochokinesia?.? Extrapyramidal System:?No tremor, rigidity with normal facial expressions,?No bradykinesia, no bradyphrenia. Normal arm swing and posture. No propulsion or retropulsion.? Speech:?Normal,?no dysphasia or dysarthria..? Mini Mental Status Exam: ? Level of Consciousness:?Alert.? Orientation:?Knows correct year, month, day?,Knows correct city,.? Registration:?Able to register 3 objects.? Attention:?Serial 7's performed accurately to 93.? Recall:?Able to recall 1 out of 3 objects.? Language:?Normal spontaneous speech, fluency, repetition,naming, comprehension, reading and writing.? Total Score:?27/30.? General Examination: ? GENERAL APPEARANCE:?normal,?in no acute distress.? HEAD:?normocephalic,?atraumatic.? EYES:?sclera non-icteric,?conjunctiva clear.? EARS:?auditory canal clear,?tympanic membrane intact, clear.? NOSE:?no lesions.? ORAL CAVITY:?gums normal,?mucosa moist,?no lesions.? THROAT:?clear.? Assessment & Plan Assessment & Plan (1) MCI (mild cognitive impairment): Comment: 03/06/21 EEG- WNL Labs normal. 03/04/21 CT brain normal. Code(s): G31.84 - Mild cognitive impairment of uncertain or unknown etiology Category: Medical (2) Insomnia: Code(s): G47.00 - Insomnia, unspecified Category: Medical (3) ANDREW (generalized anxiety disorder): Code(s): F41.1 - Generalized anxiety disorder Category: Medical Plan Continue current meds Medications: Changed From escitalopram oxalate 10 mg PO DAILY To escitalopram oxalate 10 mg PO DAILY 90 tabs 3RF 90 days Coding Level of Care Code Est Pt Level 4 (22090) Diagnoses MCI (mild cognitive impairment) G31.84 Insomnia G47.00 ANDREW (generalized anxiety disorder) F41.1
== END ==
LOC: HO.HSM 15:11
PROVIDERS: PCP Internal Medicine; Visit Provider Psychiatry & Neurology Neurology
DX: G31.84 Mild cognitive impairment of uncertain or unknown etiology (principal); G47.00 Insomnia, unspecified; F41.1 Generalized anxiety disorder
CPT/HCPCS: 99214

== ENCOUNTER → 2025-10-30 15:10 | Outpatient (BNVA) | payer MEDICARE, MEDICAID, SELFPAY | PROVIDERS: PCP Internal Medicine; Visit Provider Psychiatry & Neurology Neurology | DX: G31.84 Mild cognitive impairment of uncertain or unknown etiology (principal); G47.00 Insomnia, unspecified; F41.1 Generalized anxiety disorder | CPT/HCPCS: 99212 ==